=== PATIENT | male | born 1965 | race Caucasian/White ===

== ENCOUNTER 2023-07-27 09:40 | Outpatient (OUT) | payer OTHER, SELFPAY ==
[2023-07-27 10:13] LABS: Basophils Absolute Auto 0.1 10^3/uL (0.0-0.1); Basophils Percent Auto 1.4 % (0.2-2.0); Eosinophils Absolute Auto 0.2 10^3/uL (0.0-0.7); Eosinophils Percent Auto 6.6 % (0.9-7.0); Hematocrit 40.7 % (42.0-54.0); Hemoglobin 13.5 g/dL (14.0-18.0); Lymphocytes Absolute Auto 1.1 10^3/uL (1.2-3.8); Lymphocytes Percent Auto 29.3 % (20.5-60.0); Mean Corpuscular HGB Conc 33.2 g/dL (29.9-35.2); Mean Corpuscular Volume 93.6 fL (80.0-94.0); Mean Platelet Volume 9.6 fL (9.5-13.5); Monocytes Absolute Auto 0.4 10^3/uL (0.3-0.8); Neutrophils Absolute Auto 1.9 10^3/uL (1.4-6.5); Neutrophils Percent Auto 51.7 % (43.0-75.0); Platelet Count 209 10^3/uL (150-450); Red Blood Count 4.35 10^6/uL (4.70-6.10); Red Cell Distribution Width 12.3 % (11.0-15.0); White Blood Count 3.7 10^3/uL (4.0-11.0)
[2023-07-27 11:23] LABS: Alanine Aminotransferase 25 U/L (16-63); Albumin Globulin Ratio 1.2; Albumin Level 3.7 g/dL (3.4-5.0); Alkaline Phosphatase 38 U/L (46-116); Anion Gap 10.2; Aspartate Amino Transferase 13 U/L (15-37); BUN Creatinine Ratio 18.8; Bilirubin Total 0.4 mg/dL (0.2-1.0); Calcium 8.6 mg/dL (8.5-10.1); Carbon Dioxide 30.2 mmol/L (21.0-32.0); Chloride 104 mmol/L (98-107); Chol HDL Ratio 2.9; Cholesterol 146 mg/dL (<=200); Estimated GFR (African America >60 (>=60); Estimated GFR (Non-African Ame >60 (>=60); Glucose 97 mg/dL (74-106); HDL Cholesterol 51 mg/dL (40-60); LDL Cholesterol Calculated 86.2 mg/dL; Potassium 4.4 mmol/L (3.5-5.1); Sodium 140 mmol/L (136-145); Total Protein 6.7 g/dL (6.4-8.2); Triglycerides 44 mg/dL (<=150); VLDL CHOLESTEROL 8.8 mg/dL
[2023-07-27 12:01] LABS: Prostate Specific Antigen Scrn 1.22 ng/mL (<=4.00)
[2023-07-27 12:02] LABS: Free T3 2.67 pg/mL (2.18-3.98); Thyroid Stimulating Hormone 2.503 uIU/mL (0.358-3.740)
[2023-07-27 12:26] LABS: Estimated Average Glucose 103 mg/dL; Glycohemoglobin A1C 5.2 % (4.5-6.2)
[2023-07-28 11:09] LABS: Insulin 6.3 uIU/mL (2.6-24.9)
== END 2023-07-27 09:41 | disposition home or self-care (01) ==
LOC: LAB 09:43
PROVIDERS: PCP Family Medicine; Visit Provider Family Medicine
DX: Z00.00 Encounter for general adult medical examination without abnormal findings (principal); E78.5 Hyperlipidemia, unspecified; R73.09 Other abnormal glucose; Z12.5 Encounter for screening for malignant neoplasm of prostate; Z12.12 Encounter for screening for malignant neoplasm of rectum; D72.819 Decreased white blood cell count, unspecified
CPT/HCPCS: 36415; 80053; 80061; 83036; 83525; 84436; 84443; 84481; 85025; G0103

== ENCOUNTER 2023-08-04 12:51 | Outpatient (OUT) | payer OTHER, SELFPAY ==
--- NOTE | 2023-08-04 13:00 | CT_ITS ---
[address] [address] Patient Name: LEI VASQUEZ MRN: [id number] date: 1965 Sex: M Assigned Patient Location: CT Current Patient Location: Accession/Order Number: [id number] Exam Date: 08/04/2023 13:02 Report Date: 08/05/2023 06:54 At the request of: RAMANDEEP ALMEIDA Procedure: CT lung screening low-dose EXAMINATION: CT lung screening low-dose HISTORY: Well Adult Z00.00 COMPARISON: No relevant comparison available. TECHNIQUE: Axial, Coronal, and Sagittal images were created without the administration of IV contrast material. Dose reduction techniques were achieved by using automated exposure control and/or adjustment of mA and/or kV according to patient size and/or use of iterative reconstruction technique. FINDINGS: LUNGS: No suspicious nodules or acute infiltrates. Incidental cyst 3.0 cm bulla within right middle lobe. PLEURA: No mass, effusion, or pneumothorax. VASCULATURE: No abnormality. JONAS: Calcified lymph nodes compatible with chronic granulomatous disease. MEDIASTINUM: Calcified lymph nodes. CARDIAC: No enlargement, pericardial thickening, or significant calcification. AORTA: No aneurysm or dissection. CHEST WALL: No mass or axillary adenopathy BONES: No bone lesion or fracture. LIMITED ABDOMEN: No suspicious findings. Limited images of the upper abdomen. OTHER: Negative. CT/CT lung screening low-dose IMPRESSION: 1. Lung-RADS Category 1 Negative. No nodules and definitely benign nodules. Continue annual screening with LDCT in 12 months. Electronically authenticated by: LIYAH HENRIQUEZ Date: 08/05/2023 06:54
[2023-08-04 16:06] LABS: Occult Blood Negative
== END 2023-08-04 12:52 | disposition home or self-care (01) ==
LOC: CT 12:51
PROVIDERS: PCP Family Medicine; Visit Provider Family Medicine
DX: Z00.00 Encounter for general adult medical examination without abnormal findings (principal); E78.5 Hyperlipidemia, unspecified; R73.09 Other abnormal glucose; Z12.5 Encounter for screening for malignant neoplasm of prostate; Z12.12 Encounter for screening for malignant neoplasm of rectum
CPT/HCPCS: 71271; G0328

== ENCOUNTER 2023-08-24 15:44 | Outpatient (OUT) | payer OTHER, SELFPAY | END 2023-08-24 15:45 | disposition home or self-care (01) | LOC: PST 15:44 | PROVIDERS: PCP Family Medicine; Visit Provider Surgery | DX: Z01.818 Encounter for other preprocedural examination (principal); D64.9 Anemia, unspecified; Z87.11 Personal history of peptic ulcer disease ==

== ENCOUNTER 2023-09-01 07:32 | Outpatient (RCR) | payer OTHER, SELFPAY | END 2023-09-24 23:59 | disposition home or self-care (01) | LOC: INF 07:32 | PROVIDERS: PCP Family Medicine; Visit Provider Internal Medicine Hematology & Oncology | DX: D72.819 Decreased white blood cell count, unspecified (principal); D64.9 Anemia, unspecified; Z72.0 Tobacco use | CPT/HCPCS: G0463 ==

== ENCOUNTER 2023-09-23 11:55 | Outpatient (OUT) | payer OTHER, SELFPAY ==
[2023-09-23 12:32] LABS: Basophils Absolute Auto 0.1 10^3/uL (0.0-0.1); Basophils Percent Auto 1.7 % (0.2-2.0); Eosinophils Absolute Auto 0.2 10^3/uL (0.0-0.7); Hematocrit 40.6 % (42.0-54.0); Hemoglobin 13.7 g/dL (14.0-18.0); Immature Granulocytes Abs Auto 0.01 10^3/uL (0.00-0.03); Immature Granulocytes Pct Auto 0.2 % (0.0-0.5); Lymphocytes Absolute Auto 1.2 10^3/uL (1.2-3.8); Lymphocytes Percent Auto 30.3 % (20.5-60.0); Mean Corpuscular HGB Conc 33.7 g/dL (29.9-35.2); Mean Corpuscular Hemoglobin 31.6 pg (25.9-34.0); Mean Corpuscular Volume 93.8 fL (80.0-94.0); Mean Platelet Volume 9.8 fL (9.5-13.5); Monocytes Absolute Auto 0.5 10^3/uL (0.3-0.8); Monocytes Percent Auto 13.2 % (1.7-12.0); Neutrophils Percent Auto 48.6 % (43.0-75.0); Platelet Count 232 10^3/uL (150-450); Red Blood Count 4.33 10^6/uL (4.70-6.10); Red Cell Distribution Width 12.3 % (11.0-15.0)
[2023-09-23 13:11] LABS: Percent Iron Saturation 38.7 %
[2023-12-14 14:32] LABS: Reticulocyte Count 1.15 % (0.60-3.10)
== END 2023-09-23 11:56 | disposition home or self-care (01) ==
PROVIDERS: PCP Family Medicine; Visit Provider Internal Medicine Hematology & Oncology
DX: D72.819 Decreased white blood cell count, unspecified (principal); D64.9 Anemia, unspecified
CPT/HCPCS: 36415; 82728; 82784; 83540; 83550; 84155; 84165; 85025; 85045; 86334

== ENCOUNTER 2023-09-29 07:44 | Outpatient (RCR) | payer OTHER, SELFPAY ==
[2023-09-30 15:13] LABS: Immunoglobulin A, Qn, Serum 326 mg/dL (90-386); Immunoglobulin G, Qn, Serum 898 mg/dL (603-1613); Immunoglobulin M, Qn, Serum 65 mg/dL (20-172)
[2023-10-01 16:11] LABS: Albumin 3.9 g/dL (2.9-4.4); Alpha-1-Globulin 0.2 g/dL (0.0-0.4); Alpha-2-Globulin 0.6 g/dL (0.4-1.0); Gamma Globulin 0.9 g/dL (0.4-1.8); Protein, Total 6.5 g/dL (6.0-8.5)
== END 2023-09-29 14:00 | disposition home or self-care (01) ==
LOC: INF 07:44
PROVIDERS: PCP Family Medicine; Visit Provider Internal Medicine Hematology & Oncology
DX: D72.819 Decreased white blood cell count, unspecified (principal); D64.9 Anemia, unspecified
CPT/HCPCS: 36415; 82784; 84155; 84165; 86334; G0463

== ENCOUNTER 2025-04-13 08:02 | Outpatient (OUT) | payer OTHER, SELFPAY ==
--- OUTSIDE RECORDS SUMMARY | 2025-04-07 07:00 | XMS_ITS ---
Author Organization [facility] in [place] Address [address] [place] [address] Care Team Providers Care Grinder Chipper Name Role Phone Chuck Bravo Primary Care Provider Allergies Allergen (clinical drug ingredient) Drug/Non Drug Allergy documented on EMR Reaction Allergy Type Onset Date Status NONE (NONE) (uncoded) Unknown Allergy Active REASON FOR VISIT Presents to office alone for yearly wellness., Would like referral to ENT. Has been having a lot sinus pressure ad congestion then triggers a headache. Last sinus surgery was 10 years ago Social History Tobacco Use: Social History Observation Description Date Details (start date - stop date) Current Smoker NA - NA Tobacco Use/Smoking Question Answer Notes Patient is a current smoker How often do you smoke cigarettes? every day Are you interested in quitting? Not ready to jonn t AUDIT-C (Standard) Question Answer Notes Did you have a drink containing alcohol in the p ast year? No Points 0 Interpretation Negative Vital Signs Blood pressure systolic 122 mm Hg 04/07/20 25 Blood pressure diastolic 70 mm Hg 025 Height 71 in 04/07/2025 Weight 230 lbs 04/07/2025 BMI 32.07 kg/m2 04/07/2025 Encounters Encounter Location Date Provider Diagnosis [facility] [address] [place] [address] 04/07/2025 Chuck Bravo Well adult Z00.0 0 Assessments Encounter Date Diagnosis (ICD Code) Assessment Notes Treatment Notes Treatment Clinical Notes Section Notes 04/07/2025 Well adult (ICD-10 - Z00.00) Plan Of Treatment Pending Test Test Name Order Date HEMOGLOBIN A1C (GLYCO) 04/07/2025 INSULIN, TOTAL 04/07/2025 LIPID PANEL (CHOL/TRIG/HDL/LDL) 04/07/20 25 Cologuard 04/07/2025 THYROID PANEL (T4/TSH/FREE T3) PSA, SCREENING 04/07/2025 CMP (COMP MET HERNANDEZ) w/eGFR CKD-EPI 2024 CBC WITH DIFF 04/07/2025 Progress Notes * Rambo ROSARIO EDOB: [birth year] (59 yo M)Acc No.[id number]:04/07/2025 Progress Note Patient: Rambo SAN Provider: Nely Bravo ([facility])MD :1965 A ge:59 Y S ex:Male Date:04/07/2025 Address:[address] [place] [address], [facility] Check In:10:56 AM ESTCheck O ut:11:50 AM EST Subjective: * Chief Complaints: * P resents to office alone for yearly wellness.Would like referral to ENT. Has been having a lot sinus pressure ad congestion then triggers a headache. Last sinus surgery was 10 years ago * HPI: D epression Screening: PHQ-2 (2015 Edition) L ittle interest or pleasure in doing things??Not at all F eeling down, depressed, or hopeless? N ot at all T otal Score 0 cologuard of colon screning needs ent refurral for recuerren sinusitis. * ROS: E ENT: hearing changes d enies. v isual changes d enies.?non-healing mouth sores d enies. s wollen glands or neck lumps d enies. h oarseness d enies. s ore throat d enies. d ifficulty swallowing d enies. n ose bleeds d enies. n maren congestion d enies. e ar ache d enies. e ar discharge?denies. r inging in ears d enies. l ight sensitivity d enies. e ye pain d enies. b lurring d enies. e ye irritation d enies. d ouble vision d enies.?vision loss d enies. G eneral/Constitutional: Sweats: D enies. F atigue d enies. S leep problems d enies. A norexia d enies. M alaise d enies. W eight loss d enies.?Fatigue or Weakness d enies. F ever or Chills d enies. C ardiovascular: Shortness of Breath w/lying flat d enies. L ightheadedness/dizziness d enies. C hest tightness/ heavy pressure d enies. S welling of legs, ankles, or feet d enies. W aking up with shortness of breath d enies. C hest pain denies. P alpitations d enies. W eight gain d enies. R espiratory: Chronic or frequent cough d enies. C oughing up blood?denies. D ifficulty breathing d enies. P roductive cough d enies. S noring?denies. S hortness of breath that awakens from sleep (PND) d enies. C hest pain d enies. S putum production d enies. W heezing d enies. M usculoskeletal: Joint pain d enies. J oint Fluid d enies. B ack pain d enies. K nee pain d enies. N consuelo pain d enies. J oint Stiffness d enies. M uscle cramps d enies. W eakness of muscles d enies. A rthritis d enies. M uscle aches d enies. P ain in shoulder(s) d enies. S wollen joints d enies. * Active Problem List U07.1 COVID-19 Modified On:07/09/2023U Status:confirmed G47.33 BERTRAND (obstructive sle ep apnea) Modified On:07/09/2023U Status:confirmed K46.9 Hernia Modified On:07/09/2023U Status:confirmed Z00.00 Well adult Modified On:07/17/2023/U Status:confirmed D72.819 Decreased white bloo d cell count, unspecified Modified On:07/28/2023U Status:confirmed J32.0 Chronic sinusitis of both maxillary sinuses Modified On:04/07/2025W/U Status:confirmed * Medical History: * Surgical History: N maren Surgery Hernia Surgery * Hospitalization/Major Diagno stic Procedure: * Family History: F ather: 73 yrs, Lung cancer, Heart Disease, diagnosed with Other malignant neoplasm of unspecified site, Unspecified heart disease. M other: 71 yrs, cancer, diagnosed with Other malignant neoplasm of unspecified site. S ister(s): alive. 1 sister(s) - healthy. .? * Social History: T obacco Use: T obacco Use/Smoking P atient is a c urrent smoker H ow often do you smoke cigarettes? e very day A re you interested in quitting? N ot ready to quit D rug/Alcohol: A LIA-C (Standard) D id you have a drink containing alcohol in the past year? N o P oints 0 I nterpretation N egative * Medications: N one * Allergies: N ONE (NONE): Allergyno[Allergies Verified] Objective: * Vitals: W t:230lbs, Ht: 71 in, BP:122/70mm Hg, BMI:32.07Index, Ht-cm: 180.34 cm, Wt-k.33 kg. * Examination: P hysical Exam: GENERAL: w ell developed, well nourished, in no acute distress. HEAD: n ormocephalic/atraumatic. EYES: p upils equal, round and reactive to light, conjunctivae and sclerae normal. EARS: n o deformity or lesion of external ear, canals and TM appear normal bilaterally, TM's intact, not inflamed with normal light reflex, hearing grossly normal to conversational speech. NOSE: n o deformity, discharge, inflammation, or lesions.? MOUTH: m ucous membranes moist, normal oropharynx and posterior pharynx without lesions or exudates, tongue normal, dentition normal. NECK: n consuelo supple, no masses or palpable cervical nodes, trachea midline, thyroid without nodules, masses, tenderness, or enlargement. CHEST: n o chest wall deformity, no chest wall tenderness.? LUNGS: n ormal respiratory effort and clear to auscultation, no wheezes, rales, or rhonchi, good air exchange. CARDIO: r egular rate and rhythm, normal S1 and S2, nor murmur, rub, or gallop. PULSES: n ormal capillary refill. ABDOMEN: s oft, non-distended, non-tender, no masses. MUSCULOSKELETAL: n o deformity or scoliosis noted, normal range of motion, joints normal, no erythema, edema, effusion, or ecchymosis. EXTREMITY: n o clubbing, cyanosis, edema, or deformity with normal ROM in both upper and lower bilateral extremities. NEUROLOGIC: g rossly normal. SKIN: n o rashes, ulcerations, or suspicious lesions. LYMPH NODES: n o cervical adenopathy, nodes normal. MENTAL STATUS: a lert and oriented x3, normal mood and affect. Assessment: * Assessment: 1. W ell adult - Z00.00 (Primary) Plan: * Treatment: * Procedure Codes: * Preventive Medicine: Screenings/Counseling: B TN ACTION PLAN Above Normal BMI Follow-up D ietary management education, guidance, and counseling See treatment section of progress note for complete details of management plan. T OBACCO ACTION PLAN Patient counselled on the dangers of tobacco use and urged to quit. 0 04/07/2025 . * * Sign off status: Completed Visit Status: C HK (Check Out) true * Provider: Nely Bravo ([facility])MD Date: 0 04/07/2025 Generated for Printi ng/Facandyg/eTransmitting on: 0 04/13/2025 08:07 AM EDT History and Physical Notes * HPI (History of Present Illness) Category Sub-Category Detail Notes Category Not es Depression Screening PHQ-2 (2015 Edition) Little interest or pleasure in doing things?: Not at all cologuard of colon screning needs ent refurral for recuerren sinusitis Feeling down, depressed, or hopeless?: N ot at all Total Score: 0 Examination Category Sub-Category Detail Notes Category Not es Physical Exam GENERAL: well developed, well nourished, in no acute distress HEAD: normocephalic/atraum atic EYES: pupils equal, round and reactive to light, conjunctivae and sclerae normal EARS: no deformity or lesi on of external ear, canals and TM appear normal bilaterally, TM's intact, not inflamed with normal light reflex, hearing grossly normal to conversational speech NOSE: no deformity, discha rge, inflammation, or lesions MOUTH: mucous membranes gurwinder st, normal oropharynx and posterior pharynx without lesions or exudates, tongue normal, dentition normal NECK: neck supple, no mass es or palpable cervical nodes, trachea midline, thyroid without nodules, masses, tenderness, or enlargement CHEST: no chest wall deform ity, no chest wall tenderness LUNGS: normal respiratory e ffort and clear to auscultation, no wheezes, rales, or rhonchi, good air exchange CARDIO: regular rate and rhy thm, normal S1 and S2, nor murmur, rub, or gallop PULSES: normal capillary ref ill ABDOMEN: soft, non-distended, non-tender, no masses RECTAL: MUSCULOSKELETAL: no deformity or scol iosis noted, normal range of motion, joints normal, no erythema, edema, effusion, or ecchymosis EXTREMITY: no clubbing, cyanosi s, edema, or deformity with normal ROM in both upper and lower bilateral extremities NEUROLOGIC: grossly normal SKIN: no rashes, ulceratio ns, or suspicious lesions LYMPH NODES: no cervical adenopat hy, nodes normal MENTAL STATUS: alert and oriented x 3, normal mood and affect
--- OUTSIDE RECORDS SUMMARY | 2025-04-07 07:38 | XMS_ITS ---
Author Organization [facility] in [place] Address [address] [place] [address] Care Team Providers Care Pick And Shovel Worker Name Role Phone Chuck Bravo Primary Care Provider [phone] Problems Problem Type SNOMED Code ICD Code Onset Dates Problem Status W/U Status Risk Notes Problem Chronic maxillary sinusitis (12461693) Chronic sinusitis of both maxillary sinuses (J32.0) Active confirmed Encounters Encounter Location Date Provider Diagnosis [facility] [address] [place] [address] 04/07/2025 Chuck Bravo Chronic sinusitis of both maxillary sinuses J32.0 Assessments Encounter Date Diagnosis (ICD Code) Assessment Notes Treatment Notes Treatment Clinical Notes Section Notes 04/07/2025 Chronic sinusitis of both maxillary sinuses (ICD-10 - J32.0) Plan Of Treatment Pending Test Test Name Order Date CT MAXILLOFACIAL WO CONTRAST 04/07/2025 Progress Notes * Rambo ROSARIO EDOB: [birth year] (59 yo M)Acc No.[id number]:04/07/2025 Patient: Thomas Rambo ESPINOZA :1965 A ge:59 Y S ex:Male Address:[place] [address] Subjective: * Chief Complaints: * C t * Medical History: * Surgical History: * Hospitalization/Major Diagno stic Procedure: * Medications: Objective: * Vitals: * Physical Examination: Assessment: * Assessment: 1. C hronic sinusitis of both maxillary sinuses - J32.0 (Primary) Plan: * Treatment: * Procedure Codes: * true * Date: Generated for Blanca mendosa/Angelic/Evaristo on: 0 04/13/2025 08:08 AM EDT
--- OUTSIDE RECORDS SUMMARY | 2025-04-11 14:40 | XMS_ITS | Encounter Summary ---
Author Organization [facility] tem Address [id number] [address] [place] [address] Care Team Providers Care Pig Breeder Name Role Phone Ramesh Bravo MD Primary Care Provider [phone] Reason for Visit * Reason Comments Fall Rib Pain Encounter Details Date Type Department Care Team (Late st Contact Info) Description 04/11/2025 2:40 PM EDT - 04/11/2025 4:14 PM EDT Emergency [facility] - ER [address] [place] [id number] Vishnu Carolina D, DO [address] [place] [address] Rib contusion, right, initial encounter (Primary Dx) Discharge Disposition: Home Social History Tobacco Use Types Packs/Day Years Used Date Smoking Tobacco: Never Smokeless Tobacco: Never Alcohol Use Standard Drinks/Week Comments Yes 0 (1 standard drink = 0.6 oz pur e alcohol) Childcare Answer Date Recorded Childcare Unknown 04/06/2019 Employment Answer Date Recorded Employment Unknown 04/06/2019 Hunger Screening Answer Date Recorded Within the past 12 months we worried whether our food would run out before we got money to buy more. Never True 01/01/2024 Within the past 12 months th e food we bought just didn't last and we didn't have money to get more. Never True 01/01/2024 Purpose - Life Answer Date Recorded Purpose and direction in life Unknown Sex and Gender Information Value Date Recorded Sex Assigned at Male 10/02/2020 11:41 AM EST Legal Sex Male 12:10 PM EDT Gender Identity Male 10/02/2020 11:41 AM EST Sexual Orientation Straight 10/02/2020 11 :41 AM EST documented as of this encounter Last Filed Vital Signs Vital Sign Reading Time Taken Comments Blood Pressure 118/83 04/11/2025 2:45 PM EDT Pulse 83 04/11/2025 2:45 PM EDT Temperature 36.4 C (97.5 F) 04/11/2025 2:45 PM EDT Respiratory Rate 16 04/11/2025 2:45 PM EDT Oxygen Saturation 97% 04/11/2025 2:45 PM EDT Inhaled Oxygen Concentration - - Weight 102.1 kg (225 lb) 04/11/2025 2:45 PM EDT Height 180.3 cm (5' 11 ) 04/11/2025 2:45 PM EDT Body Mass Index 31.38 04/11/2025 2:45 PM EDT documented in this encounter Discharge Instructions * Discharge Instructions* Vishnu Carolina DO - 04/11/2025 3:24 PM EDT Naproxen for pain Flexeril for muscle relaxation Ice or heat to the sore area Please see your family doctor for recheck Return for any concerns documented in this encounter Medications at Time of Discharge cyclobenzaprine (FLEXERIL) 10 mg tablet Take 1 tablet (10 mg total) by mouth 2 (two) times a day as needed for muscle spasms for up to 14 doses. 10 tablet 04/11/2025 naproxen (NAPROSYN) 500 mg tablet Take 1 tablet (500 mg total) by mouth in the morning and 1 tablet (500 mg total) in the evening. Take with meals. Do all this for 20 doses. 20 tablet 04/11/2025 04/21/2025 documented as of this encounter ED Notes * Vishnu Carolina DO - 04/11/2025 3:14 PM EDT Images from the original note were not included. [facility] - ER Pt Name: Rambo Boldencarolina SUMMERS Birthdate: 1965 Chief Complaint: Chief Complaint Patient presents with ??? Fall ??? Rib Pain History of Present Illness: Initial evaluation performed at 3:[address] Carolina. Patient is a 59 y.o. Male who presents to the ED for evaluation of Fall rib pain. Patient presents to ED for a fall. Patient states while working he was coming down steps when he fell. Patient states when he fell he fell on right side. Patient states he hit his ribs on the steps. History provided by: Patient aerodynamic consultant used: No Past Medical History: Past Medical History: Diagnosis Date ??? Anemia Sep 2020 ??? Back pain 2004 ??? Shingles 2009 ??? Varicella Childhood Past Surgical History: Past Surgical History: Procedure Laterality Date ??? HERNIA REPAIR March 2021 Lapo/Robotic ??? INGUINAL HERNIA REPAIR Sep 2019 ??? SINUS SURGERY Family History: Family History Problem Relation Age of Onset ??? Depression Mother ??? Mental illness Mother ??? COPD Father ??? Heart disease Father ??? Lung cancer Father Social History: Social History Socioeconomic History ??? Marital status: Tobacco Use ??? Smoking status: Never ??? Smokeless tobacco: Never Vaping Use ??? Vaping status: Every Day ??? Substances: Nicotine ??? Devices: Refillable tank Substance and Sexual Activity ??? Alcohol use: Yes ??? Drug use: Not Currently ??? Sexual activity: Defer Social Drivers of Health Food Insecurity: No Food Insecurity (01/01/2024) Hunger Screening ??? Food Insecurity - Worry: Never True ??? Food Insecurity - Inability: Never True Review of Systems: Review of Systems Physical Exam: ED Triage Vitals [04/11/25 1445] Temp Heart Rate Resp BP SpO2 36.4 ??C (97.5 ??F) 83 16 118/83 97 % Temp Source Heart Rate Source Patient Position BP Location FiO2 (%) Temporal Pulse Ox Sitting Left arm -- Vitals: 04/11/25 1445 BP: 118/83 Temp: 36.4 ??C (97.5 ??F) TempSrc: Temporal Pulse: 83 Resp: 16 SpO2: 97% Height: 180.3 cm (5' 11 ) Weight: 102.1 kg (225 lb) Physical Exam Vitals reviewed. HENT: Head: Normocephalic and atraumatic. Eyes: Conjunctiva/sclera: Conjunctivae normal. Cardiovascular: Rate and Rhythm: Normal rate. Pulmonary: Effort: Pulmonary effort is normal. Breath sounds: Normal breath sounds. Abdominal: General: There is no distension. Palpations: Abdomen is soft. Musculoskeletal: General: Normal range of motion. Cervical back: Normal range of motion and neck supple. Comments: Posterior right tenderness to ribs. Skin: General: Skin is warm and dry. Neurological: General: No focal deficit present. Mental Status: He is alert and oriented to person, place, and time. GCS: GCS eye subscore is 4. GCS verbal subscore is 5. GCS motor subscore is 6. Procedure: Procedures Re-evaluation: Mandy Gallagher (scribe), documented on behalf and in the presence of Dr. Andre Carolina. 3:19 PM Patient prescribed medication. Patient will be discharges, patient will be given safe instructions upon discharge. Medical Decision Making Amount and/or Complexity of Data Reviewed Radiology: ordered. Details: Imaging was independently??viewed??and is notable for no findings. Agreeable with officialradiologist read.?? ED Course: Clinical Impressions as of 04/11/25 1519 Rib contusion, right, initial encounter . ED Disposition None . Please note that portions of this note were completed with a voice recognition program. Efforts were made to edit the dictations but occasionally words are mis-transcribed. 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 and slid on steps falling backwards and striking posterior right lower ribs on step Pain to area since Mildredness to area noted No crepitus or swelling is noted Denies hitting head Denies pain to other areas Pt A/Ox4, calm, pleasant Skin wm, dry, approp color Resp even, easy Breathsounds clear throughoutbilat post/lat Amb into ED steady Drove self here documented in this encounter Plan of Treatment Not on file documented as of this encounter Procedures Procedure Name Priority Date/Time Associated Diagnosis Comments XR RIBS RT 3 VWS W PA CHEST STAT 04/11/2025 3:01 PM EDT documented in this encounter Results * X-ray ribs right 3 views with pa chest (04/11/2025 3:01 PM EDT) Anatomical Region Laterality Modality MSK, Chest Right Computed Radiogr aphy 04/11/2025 3:02 PM EDT Narrative 04/11/2025 3:03 PM EDT Clinical history: Fall. Rib pain. Right RIBS: 04/11/2025 COMPARISON: None FINDINGS: 5 views of the right ribs were obtained. No displaced rib injury or focal rib deformity is evident. No pneumothorax or pleural effusion is present. Other visualized osseous structures are within normal limits. IMPRESSION: No displaced rib fracture. Finalized by Heriberto Foley MD on 04/11/2025 3:03 PM Procedure Note Heriberto Foley MD - 04/11/2025 Clinical history: Fall. Rib pain. Right RIBS: 04/11/2025 COMPARISON: None FINDINGS: 5 views of the right ribs were obtained. No displaced rib injury or focalrib deformity is evident. No pneumothorax or pleural effusion is present.Other visualized osseous structures are within normal limits. IMPRESSION: No displaced rib fracture. Finalized by Heriberto Foley MD on 04/11/2025 3:03 PM Vishnu Carolina DO IMG DIAGNOSTIC IMAGING ORDERA BLES Final Result documented in this encounter Visit Diagnoses Diagnosis Rib contusion, right, initial encounter- Primary documented in this encounter Care Teams Pig Breeder Relationship Specialty Start Date End Date Ramesh Bravo MD PCP - General Family Medicine 09/28/20 documented as of this encounter
--- OUTSIDE RECORDS SUMMARY | 2025-04-12 17:10 | XMS_ITS ---
Author Organization [facility] in [place] Address [address] [place] [address] Care Team Providers Care Principal Programmer Name Role Phone Chuck Bravo Primary Care Provider [phone] Encounters Encounter Location Date Provider Diagnosis [facility] [address] [place] [address] 04/12/2025 Chuck Bravo Plan Of Treatment No Information Progress Notes * Rambo ROSARIO EDOB: [birth year] (59 yo M)Acc No.[id number]:04/12/2025 UNLOCKED PROGRESS NOTE Patient: Thomas Rambo ESPINOZA :1965 A ge:59 Y S ex:Male Address:[address] [place] [address] * * Date:
--- OUTSIDE RECORDS SUMMARY | 2025-04-13 08:06 | XMS_ITS | Clinical Summary ---
Author Organization [facility] Address [address] [place] [address] Care Team Providers Care Commissioning Engineer Name Role Phone Ramesh Bravo MD Primary Care Provider [phone] Allergies No known active allergies Medications No known medications Active Problems Problem Noted Date Diagnosed Date Chronic nonintractable headache 05/05/2016 Resolved Problems Problem Noted Date Diagnosed Date Resolved Date Decreased white blood cell count, unspecified 08/28/20 23 08/28/2023 Closed displaced fracture of lateral malleolus of right fibula 05/22/2021 07/09/2023 Posterior tibial tendinitis of right lower extremity 05/22/2021 07/09/2023 Status post inguinal hernia repair 04/15/2021 07/09/2023 Gastroesophageal reflux dise ase without esophagitis 05/05/2016 07/09/2023 Immunizations Immunization Administration Dates Next Due Tdap 10/26/2012 Family History Medical History Relation Name Comments Cancer Father Rambo Roberson Sr Early natural Mother Anaya Roberson Relation Name Status Comments Father Rambo Roberson Sr Mother Anaya Roberson Social History Tobacco Use Types Packs/Day Years Used Date Smoking Tobacco: Former Cigarettes 0.5 10 0 10/26/2006 - 10/26/2014 Smokeless Tobacco: Current Tobacco Cessation:Ready to Q uit: Not Asked Alcohol Use Standard Drinks/Week Comments Yes 2 (1 standard drink = 0.6 oz pur e alcohol) Sex and Gender Information Value Date Recorded Sex Assigned at Not on file Legal Sex Male 6:54 PM EDT Gender Identity Not on file Sexual Orientation Not on file Last Filed Vital Signs Vital Sign Reading Time Taken Comments Blood Pressure - - Pulse - - Temperature - - Respiratory Rate - - Oxygen Saturation - - Inhaled Oxygen Concentration - - Weight 104 kg (230 lb) 11/16/2023 2:01 PM EST Height 180.3 cm (5' 11 ) 11/16/2023 2:01 PM EST Body Mass Index 32.08 11/16/2023 2:01 PM EST Plan of Treatment Not on file Insurance Care Teams Commissioning Engineer Relationship Specialty Start Date End Date Ramesh Bravo MD PCP - General Family Medicine 07/07/23
--- OUTSIDE RECORDS SUMMARY | 2025-04-13 08:07 | XMS_ITS | Encounter Summary ---
Author Organization [facility] Address [address] [place] [address] Care Team Providers Care Rand Maker Name Role Phone Ramesh Bravo MD Primary Care Provider [phone] Encounter Details Date Type Department Care Team (Late st Contact Info) Description 07/09/2023 Abstract [facility] [address] [place] [address] Malik Duque DO [address] [place] [address] Social History Tobacco Use Types Packs/Day Years Used Date Smoking Tobacco: Former Cigarettes Q uit: 2015 Smokeless Tobacco: Never Alcohol Use Standard Drinks/Week Comments Not Currently 0 (1 standard drink = 0.6 oz pur e alcohol) Sex and Gender Information Value Date Recorded Sex Assigned at Not on file Legal Sex Male 6:54 PM EDT Gender Identity Not on file Sexual Orientation Not on file documented as of this encounter Plan of Treatment Not on file documented as of this encounter Visit Diagnoses Not on filedocumented in this encounter Care Teams Rand Maker Relationship Specialty Start Date End Date Ramesh Bravo MD PCP - General Family Medicine 07/07/23 documented as of this encounter
--- OUTSIDE RECORDS SUMMARY | 2025-04-13 08:07 | XMS_ITS | Encounter Summary ---
Author Organization [facility] Address [address] [facility] [place] [address] Care Team Providers Care Referral Rn Name Role Phone Ramesh Bravo MD Primary Care Provider [phone] Encounter Details Date Type Department Care Team (Late st Contact Info) Description 07/15/2023 Orders Only [facility] [address] [place] [address] Noa Cifuentes MA Social History Tobacco Use Types Packs/Day Years [...] on filedocumented in this encounter Care Teams Referral Rn Relationship Specialty Start Date End Date Ramesh Bravo MD PCP - General Family Medicine 07/07/23 documented as of this encounter
--- OUTSIDE RECORDS SUMMARY | 2025-04-13 08:07 | XMS_ITS | Encounter Summary ---
Author Organization [employer] [facility] tem Address [id number] [address] [place] [address] Care Team Providers Care Education Program Associate Name Role Phone Ramesh Barvo MD Primary Care Provider [phone] Encounter Details Date Type Department Care Team (Late st Contact Info) Description 10/01/2020 Telephone [facility] [address] [facility] [address] Peterson Quintero MD [address] [place] [address], [address] [place] [address] Social History Tobacco Use Types Packs/Day Years Used Date Smoking Tobacco: Never Smokeless Tobacco: Never Alcohol Use Standard Drinks/Week Comments Yes 0 (1 standard drink = 0.6 oz pur e alcohol) Childcare Answer Date Recorded Childcare Unknown 04/06/2019 Employment Answer Date Recorded Employment Unknown 04/06/2019 Sex and Gender Information Value Date Recorded Sex Assigned at Male 10/02/2020 11:41 AM EST Legal Sex Male 12:10 PM EDT Gender Identity Male 10/02/2020 11:41 AM EST Sexual Orientation Straight 10/02/2020 11 :41 AM EST COVID-19 Exposure Response Date Recorded In the last month, have you been in contact with someone who was confirmed or suspected to have Coronavirus / COVID-19? No / Unsure 10/04/2020 9:12 AM EST documented as of this encounter Miscellaneous Notes * Telephone Encounter - Hemalatha Dora - 10/01/2020 11:59 AM EST Hey there! Can you take a look at the ankle XR, let me know if this is something that you would like to see and if it needs to be seen soon in the office? Fanny Cazares * Telephone Encounter - Peterson Quintero MD - 10/01/2020 11:[address] melton can see * Telephone Encounter - Hemalatha John - 10/01/2020 11:59 AM EST Charo Brown! Would you mind calling this patient and getting them on with Dr Melton for later this week? It is Worker's Comp, I will update the insurance with the [facility] info. Sage, Fanny * Telephone Encounter - Stephanie Angela - 10/01/2020 11:59 AM EST I left a message on the patients voicemail to schedule with Dr Melton. documented in this encounter Plan of Treatment Not on file documented as of this encounter Visit Diagnoses Not on filedocumented in this encounter Additional Health Concerns Infection Onset Date Last Indicated Resolved Time COVID-19 Rule-Out 10/25/2021 10/25/2021 10/26/2021 12:30 PM EST COVID-19 Positive 10/25/2021 10/25/2021 11/15/2021 11:13 PM EST documented as of this encounter Care Teams Education Program Associate Relationship Specialty Start Date End Date Ramesh Bravo MD PCP - General Family Medicine 09/28/20 documented as of this encounter
--- OUTSIDE RECORDS SUMMARY | 2025-04-13 08:07 | XMS_ITS | Encounter Summary ---
Author Organization [employer] [facility] tem Address [id number] [address] [place] [address] Care Team Providers Care Recruiting Consultant Name Role Phone Ramesh Bravo MD Primary Care Provider [phone] Encounter Details Date Type Department Care Team (Late st Contact Info) Description 01/31/2021 Telephone [facility] [address] [place] [phone] Malik Nicholson MD [address] [place] [address] Social History Tobacco Use Types Packs/Day Years Used Date Smoking Tobacco: Never Smokeless Tobacco: Never Alcohol Use Standard Drinks/Week Comments Yes 0 (1 standard drink = 0.6 oz pur e alcohol) Childcare Answer Date Recorded Childcare Unknown 04/06/2019 Employment Answer Date Recorded Employment Unknown 04/06/2019 Purpose - Life Answer Date Recorded Purpose and direction in life Unknown Sex and Gender Information Value Date Recorded Sex Assigned at Male 10/02/2020 11:41 AM EST Legal Sex Male 12:10 PM EDT Gender Identity Male 10/02/2020 11:41 AM EST Sexual Orientation Straight 10/02/2020 11 :41 AM EST documented as of this encounter Miscellaneous Notes * Telephone Encounter - Flavia Jonas - 01/31/2021 9:12 AM EDT I spoke with the patient they need a letter from Dr. Jose Alejandro Sweeney. The letter need to state some information about his [facility] claim and diagnosis. He needs this because he is selling and buying a house. Please contact the patient about the details at [phone]. 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 ?? He was wondering if it would be possible to get a new letter you? ?? It would need to state that his recovery follow up will be re-evaluated at my next appointment and how long it may take for this to heal and what you feel his anticipated release to resume the physical work of his job with the [employer]. His next office visit is on March 07 ?? documented in this encounter Plan of Treatment Not on file documented as of this encounter Visit Diagnoses Not on filedocumented in this encounter Additional Health Concerns Infection Onset Date Last Indicated Resolved Time COVID-19 Rule-Out 10/25/2021 10/25/2021 10/26/2021 12:30 PM EST COVID-19 Positive 10/25/2021 10/25/2021 11/15/2021 11:13 PM EST documented as of this encounter Care Teams Recruiting Consultant Relationship Specialty Start Date End Date Ramesh Bravo MD PCP - General Family Medicine 09/28/20 documented as of this encounter
--- OUTSIDE RECORDS SUMMARY | 2025-04-13 08:07 | XMS_ITS | Clinical Summary ---
Author Organization [facility] Address [address] [place] [address] Care Team Providers Care Life Agent Name Role Phone Ramesh Bravo MD Primary Care Provider [phone] Allergies No known active allergies Medications pantoprazole (PROTONIX) 40 MG tabletIndication s:Gastroesophage al reflux disease without esophagitis Take 1 tablet by mouth 2 times daily 60 tablet 0 6 Active Additional Information Patient not taking.Reported on 03/26/2021 ibuprofen-famoti dine 800-26.6 MG TABS Take 1 tablet by mouth daily as needed 30 tablet 3 6 Active Additional Information Patient not taking.Reported on 03/26/2021 cyclobenzaprine (FLEXERIL) 10 MG tablet Take 1 tablet by mouth 3 times daily as needed for Muscle spasms 30 tablet 2 6 Active cyclobenzaprine (FLEXERIL) 5 MG tablet Take 5 mg by mouth 3 times daily as needed for Muscle spasms Active acetaminophen (TYLENOL) 500 MG tablet Take 1,000 mg by mouth every 6 hours as needed for Pain Active docusate sodium (COLACE) 100 MG capsule Take 1 capsule by mouth 2 times daily 30 capsule Active Additional Information Patient not taking.Reported on 04/15/2021 Active Problems Problem Noted Date Diagnosed Date Status post inguinal hernia repair 04/15/2021 Gastroesophageal reflux disease without esophagi tis 05/05/2016 Chronic nonintractable headache 05/05/2016 Immunizations Immunization Administration Dates Next Due UMBERTOaP, ADACEL (age 10y-64y), BOOSTRIX (age 10y+), IM, 0.5mL 10/26/2012 Family History Medical History Relation Name Comments High Blood Pressure Father Bipolar Disorder Mother Relation Name Status Comments Father Alive Mother Alive Social History Tobacco Use Types Packs/Day Years Used Date Smoking Tobacco: Former Cigarettes Q uit: 03/27/2016 Smokeless Tobacco: Never Alcohol Use Standard Drinks/Week Comments Yes 0 (1 standard drink = 0.6 oz pur e alcohol) not often Sex and Gender Information Value Date Recorded Sex Assigned at Male 04/03/2021 8:20 AM EDT Legal Sex Male 5:38 PM EST Gender Identity Male 04/03/2021 8:20 AM EDT Sexual Orientation Straight 04/03/2021 8: 20 AM EDT Last Filed Vital Signs Vital Sign Reading Time Taken Comments Blood Pressure 110/79 04/15/2021 11:06 AM EDT Pulse 66 04/15/2021 11:06 AM EDT Temperature 36.4 C (97.6 F) 04/05/2021 5:25 PM EDT Respiratory Rate 20 04/05/2021 6:00 PM EDT Oxygen Saturation 95% 04/15/2021 11: 06 AM EDT Inhaled Oxygen Concentration - - Weight 114.9 kg (253 lb 6.4 oz) 021 11:06 AM EDT Height 180.3 cm (5' 11 ) 04/15/2021 11: 06 AM EDT Body Mass Index 35.34 04/15/2021 11:06 AM EDT Plan of Treatment Not on file Medical Devices Implanted Type Area Clinical Laboratory Science Professor Device Identifier Shelf Expiration Date Model / Serial / Lot Mesh Surg [id number] Poly Self Fixating Rect W/ Resrb Serenity Implanted:Qty: 1 on 04/05/2021 by Scooby Nunes DO at [facility] [employer] US SURGICAL-WD 06/25/2025 [id number] / / [id number] Insurance [employer] Care Teams Life Agent Relationship Specialty Start Date End Date Ramesh Bravo MD [address] [place] [address] PCP - General Family Medicine 03/28/21
--- OUTSIDE RECORDS SUMMARY | 2025-04-13 08:08 | XMS_ITS | Encounter Summary ---
Author Organization [facility] Address [address] [place] [address] Care Team Providers Care Monotype Keyboard Operator Name Role Phone Ramesh Bravo MD Primary Care Provider [phone] Encounter Details Date Type Department Care Team (Late st Contact Info) Description 11/16/2023 Abstract [facility] [address] [place] [phone] Ken Quinones, DPM [address] [place], [place] [phone] Social History Tobacco Use Types Packs/Day Years Used Date Smoking Tobacco: Former Cigarettes 0.5 10 0 10/26/2006 - 10/26/2014 Smokeless Tobacco: Current Alcohol Use Standard Drinks/Week Comments Yes 2 [...] on filedocumented in this encounter Care Teams Monotype Keyboard Operator Relationship Specialty Start Date End Date Ramesh Bravo MD PCP - General Family Medicine 07/07/23 documented as of this encounter
--- OUTSIDE RECORDS SUMMARY | 2025-04-13 08:08 | XMS_ITS | Patient Health Record ---
Author Organization [facility] [place] Address [address] [place] [address] Care Team Providers Care Embedded Linux Engineer Name Role Phone Chuck Bravo Primary Care Provider Allergies Allergen (clinical drug ingredient) Drug/Non Drug Allergy documented on EMR Reaction Allergy Type Onset Date Status NONE (NONE) (uncoded) Unknown Allergy Active Reason For Referral No Information Social History Tobacco Use: Social History Observation Description Date Details (start date - stop date) Current Smoker NA - NA Tobacco Use/Smoking Question Answer Notes Patient is a current smoker How often do you smoke cigarettes? every day Are you interested in quitting? Not ready to jonn t Alcohol Screen (Audit-C) Question Answer Notes Did you have a drink contain ing alcohol in the past year? Yes How often did you have 6 or more drinks on one occasion in the past year? Never (0 point) How many drinks did you have on a typical day when you were drinking in the past year? 1 or 2 drinks (0 point) How often did you have a dri nk containing alcohol in the past year? Less than monthly (1 point) Points 1 Interpretation Negative AUDIT-C (Standard) Question Answer Notes Did you have a drink containing alcohol in the p ast year? No Points 0 Interpretation Negative Problems Problem Type SNOMED Code ICD Code Onset Dates Problem Status W/U Status Risk Notes Problem 41056258 Decreased white blood cell count, unspecified (D72.819) Active confirmed Problem Obstructive sleep apnea syndrome (07199594) BERTRAND (obstructive sleep apnea) (G47.33) Active confirmed Problem Well adult (227421880) Well adult (Z00.00) Active confirmed Problem Chronic maxillary sinusitis (58866865) Chronic sinusitis of both maxillary sinuses (J32.0) Active confirmed Problem Hernia (809089823) Hernia (K46.9) Active confirmed Problem COVID-19 (947549771) COVID-19 (U07.1) Active confirmed Vital Signs Blood pressure diastolic 70 mm Hg 04/07/2025 Height 71 in 04/07/2025 Blood pressure systolic 122 mm Hg 04/07/2025 Weight 230 lbs 04/07/2025 BMI 32.07 kg/m2 04/07/2025 Encounters Encounter Location Date Provider Diagnosis [address] [address] 04/07/2025 Chuck Yapy Chronic sinusitis of both maxillary sinuses J32.[address] [address] 04/12/2025 Chuck Yapy [address] [address] 04/07/2025 Chuck Yapy Well adult Z00.00 Assessments Encounter Date Diagnosis (ICD Code) Assessment Notes Treatment Notes Treatment Clinical Notes Section Notes 04/07/2025 Well adult (ICD-10 - Z00.00) 04/07/2025 Chronic sinusitis of both maxillary sinuses (ICD-10 - J32.0) Plan Of Treatment Pending Test Test Name Order Date CMP (COMPLETE METABOLIC PANEL) 3 HEMOGLOBIN A1C (GLYCO) 07/17/2023 HEMOGLOBIN A1C (GLYCO) 04/07/2025 INSULIN, TOTAL 04/07/2025 INSULIN, TOTAL 07/17/2023 LIPID PANEL (CHOL/TRIG/HDL/LDL) 07/17/20 23 LIPID PANEL (CHOL/TRIG/HDL/LDL) 04/07/20 25 CBC WITH DIFF 07/17/2023 PSA, PROSTATE-SPECIFIC ANTIGEN 3 Cologuard 04/07/2025 CT Chest Low Dose for Screening* 023 STOOL OCCULT BLOOD 07/17/2023 CBC AUTO DIFF 07/27/2023 THYROID PANEL (T4/TSH/FREE T3) 5 THYROID PANEL (T4/TSH/FREE T3) 3 PSA, SCREENING 04/07/2025 CT MAXILLOFACIAL WO CONTRAST 04/07/2025 CMP (COMP MET HERNANDEZ) w/eGFR CKD-EPI 2024 CBC WITH DIFF 04/07/2025 Insurance Providers Payer Name Payer Address Payer Phone Subscriber Number Group Number Insured Name Patient Relationship to Insured Coverage Start Date Coverage End Date CAITLYN WILSON [id number] [place] [phone] [id number] Rambo Rosario Self - patient is the insured Medical (General) History Medical History History ICD Code COVID 19 BERTRAND HERNIA LATERAL MALLEOLUS FRACTURE RIGHT Surgical History Surgery Date(Month/Year) Hernia Surgery Nasal Surgery
--- OUTSIDE RECORDS SUMMARY | 2025-04-13 08:08 | XMS_ITS | Encounter Summary ---
Author Organization [facility] tem Address [id number] [address] [place] [address] Care Team Providers Care Early Childhood Education Worker Name Role Phone Ramesh Bravo MD Primary Care Provider [phone] Encounter Details Date Type Department Care Team (Latest Contact Info) Description 04/11/2025 Travel Social History Tobacco Use Types Packs/Day Years [...] AM EST documented as of this encounter Plan of Treatment Not on file documented as of this encounter Visit Diagnoses Not on filedocumented in this encounter Care Teams Early Childhood Education Worker Relationship Specialty Start Date End Date Ramesh Bravo MD PCP - General Family Medicine 09/28/20 documented as of this encounter
--- OUTSIDE RECORDS SUMMARY | 2025-04-13 08:08 | XMS_ITS | Patient Health Record ---
Author Organization [facility] Address [address] [place] [address] Care Team Providers Care Electric Shaver Mechanic Name Role Phone Dr. Juan Jose Horner Primary Care Provider [phone] Reason For Referral No Information Encounters Encounter Location Date Provider Diagnosis [facility] [address] [place] [address] 03/06/2025 Juan Jose Horner Dental caries on pit and fissure surface penetrating into dentin K02.52 ; Other dental procedure status Z98.818 ; Encounter for dental examination and cleaning with abnormal findings Z01.21 and Disturbances in tooth eruption K00.6 Assessments Encounter Date Diagnosis (ICD Code) Assessment Notes Treatment Notes Treatment Clinical Notes Section Notes 03/06/2025 Dental caries on pit and fissure surface penetrating into dentin (ICD-10 - K02.52) 03/06/2025 Other dental procedure status (ICD-10 - Z98.818) 03/06/2025 Encounter for dental examination and cleaning with abnormal findings (ICD-10 - Z01.21) 03/06/2025 Disturbances in tooth eruption (ICD-10 - K00.6) Plan Of Treatment Next Appt Details Provider Name:Kerialverto Guevara, 06/22/2025 01:30:00 PM, [address] [place], [address], Provider Name:Paulina Eden , 09/14/2025 03:45:00 PM, [address] [place], [address], Insurance Providers Payer Name Payer Address Payer Phone Subscriber Number Group Number Insured Name Patient Relationship to Insured Coverage Start Date Coverage End Date DENTAL BCBS FEP [address] [place] [phone] [id number] LEI CHANG JR Self - patient is the insured 5
--- OUTSIDE RECORDS SUMMARY | 2025-04-13 08:08 | XMS_ITS | Clinical Summary ---
Author Organization [employer] [facility] Address [id number] [address] [place] [address] Care Team Providers Care Flower Buncher Or Picker Name Role Phone Ramesh Bravo MD Primary Care Provider [phone] Allergies No known active allergies Medications cyclobenzaprin e (FLEXERIL) 10 mg tablet Take 1 tablet (10 mg total) by mouth 2 (two) times a day as needed for muscle spasms for up to 14 doses. 10 tablet 5 Active naproxen (NAPROSYN) 500 mg tablet Take 1 tablet (500 mg total) by mouth in the morning and 1 tablet (500 mg total) in the evening. Take with meals. Do all this for 20 doses. 20 tablet 5 04/21/20 25 Active cyclobenzaprin e (FLEXERIL) 10 mg tablet Take 10 mg by mouth 3 (three) times a day. 1 04/11/20 25 Discontinued Active Problems Problem Noted Date Diagnosed Date Closed displaced fracture of lateral malleolus of right fibula 05/22/2021 Posterior tibial tendinitis of right lower extre mity 05/22/2021 Encounters Date Type Department Care Team Description 04/11/2025 2:40 PM EDT - 04/11/2025 4:14 PM EDT Emergency [facility] - ER [address] [place] [phone] Vishnu [place], Rib contusion, right, initial encounter (Primary Dx) Discharge Disposition: Home 04/11/2025 Travel from Last 3 Months Family History Medical History Relation Name Comments COPD Father Norm Heart disease Father Norm Lung cancer Father Norm Depression Mother Anaya Mental illness Mother Anaya Relation Name Status Comments Father Norm Mother Anaya Social History Tobacco Use Types Packs/Day Years [...] Orientation Straight 10/02/2020 11 :41 AM EST Last Filed Vital Signs Vital Sign Reading [...] Mass Index 31.38 04/11/2025 2:45 PM EDT Plan of Treatment Health Maintenance Due Date Last Done Comments Depression Screening 1979 Adult BMI Follow Up Plan 1985 Zoster (Shingles) Vaccine (1 of 2) 2017 DTaP,Tdap and Td Vaccines (2 - Td or Tdap) 10/26/2022 10/26/2012 Influenza Vaccine 06/26/2025 Adult BMI Screening 04/11/2026 04/11/2025 Tobacco Screening 04/11/2026 04/11/2025 Medical Devices Not on file Procedures Procedure Name Priority Date/Time Associated Diagnosis Comments XR RIBS RT 3 VWS W PA CHEST STAT 04/11/2025 3:01 PM EDT from Last 3 Months Results * X-ray ribs right 3 views [...] IMG DIAGNOSTIC IMAGING ORDERA BLES Final Result from Last 3 Months Insurance [employer] [address] [place] [address] [employer] Care Teams Flower Buncher Or Picker Relationship Specialty Start Date End Date Ramesh Bravo MD PCP - General Family Medicine 09/28/20
--- OUTSIDE RECORDS SUMMARY | 2025-04-13 08:08 | XMS_ITS | Encounter Summary ---
Author Organization [facility] Address [address] [place] [address] Care Team Providers Care Thermostat Repairer Name Role Phone Ramesh Bravo MD Primary Care Provider [phone] Encounter Details Date Type Department Care Team (Late st Contact Info) Description 11/16/2023 Abstract [facility] [address] [place] [phone] Ken Quinones, DPM [address] [place], [place] [phone] Social History Tobacco Use Types Packs/Day Years [...] on filedocumented in this encounter Care Teams Thermostat Repairer Relationship Specialty Start Date End Date Ramesh Bravo MD PCP - General Family Medicine 07/07/23 documented as of this encounter
--- OUTSIDE RECORDS SUMMARY | 2025-04-13 08:09 | XMS_ITS | CCD ---
Author Organization [facility] Care Team Providers Care Manager Sourcing Name Role Phone LAWRENCE, DR SABILLON Primary Care Unavailable HOY, DR SABILLON Consulting Unavailable HOY, DR SABILLON Attending Unavailable HOY, DR SABILLON Admitting Unavailable NILL, DR HAN Attending Unavailable NILL, DR HAN Admitting Unavailable HOY, DR SABILLON Primary Care Unavailable NILL, DR HAN Attending Unavailable HOY, DR SABILLON Primary Care Unavailable NILL, DR HAN Admitting Unavailable NILL, DR HAN Attending Unavailable NILL, DR HAN Admitting Unavailable HOY, DR SABILLON Primary Care Unavailable HOY, DR SABILLON Consulting Unavailable HOY, DR SABILLON Attending Unavailable HOY, DR SABILLON Admitting Unavailable HOY, DR SABILLON Consulting Unavailable HOY, DR SABILLON Attending Unavailable HOY, DR SABILLON Admitting Unavailable HOY, DR SABILLON Primary Care Unavailable ZIEBER, DR LIYAH Hutchinson Consulting Unavailable HOY, DR SABILLON Consulting Unavailable HOY, DR SABILLON Attending Unavailable HOY, DR SABILLON Admitting Unavailable Bierley Darlene KERR CNP Primary Care Provider Ramandeep Bravo MD Primary Care Provider LEANDRA MARCUS Referring Unavailable RAMANDEEP BRAVO Primary Care Unavailable LAUREANO NUNES Referring Unavailable DARLENE REYES Primary Care Unavailable LAUREANO NUNES Referring Unavailable DARLENE REYES Primary Care Unavailable LAUREANO NUNES Referring Unavailable DARLENE REYES Primary Care Unavailable Ramandeep Bravo Primary Care Physician [phone] Emely GOLDSMITH Attending Unavailable MALINI QUINONES Attending Unavailable MALINI QUINONES Referring Unavailable MALINI QUINONES Referring Unavailable REJI DE LA ROSA Attending Unavailable RAMANDEEP BRAVO Referring Unavailable RAMANDEEP BRAVO Primary Care Unavailable REJI DE LA ROSA Attending Unavailable RAMANDEEP BRAVO Referring Unavailable RAMANDEEP BRAVO Primary Care Unavailable REJI DE LA ROSA Referring Unavailable RAMANDEEP BRAVO Primary Care Unavailable REJI DE LA ROSA Referring Unavailable RAMANDEEP BRAVO Primary Care Unavailable REJI DE LA ROSA Referring Unavailable RAMANDEEP BRAVO Primary Care Unavailable Ramandeep Bravo MD Primary Care Provider [phone] Allergies Allergy Classification Reported Allergen(s) Allergy Type Date of Onset Reaction(s) Facility (1 source) No Known Medication Allergies; Translations: [No Known Medication Allergies] Propensity to adverse reactions (disorder) [facility] Medications Current Medications Medication Drug Class(es) Dates Sig (Normalized) Sig (Original) acetaminophen 500 mg oral tablet (3 sources) take 2 tablets by mouth every six hours as needed for pain acetaminophen (TYLENOL) 500 MG tablet Take 1,000 mg by mouth every 6 hours as needed for Pain 0 Active acetaminophen 325 mg / HYDROcodone bitartrate 5 mg oral tablet (1 source) Opioid Agonist Start: 04-05-2021 End: 04-12-2021 HYDROcodone-acetamin ophen (NORCO) 5-325 MG per tablet Indications: Right inguinal hernia Take 1 tablet by mouth every 6 hours as needed for Pain for up to 7 days. Intended supply: 7 days. Take lowest dose possible to manage pain 10 tablet 0 04/05/2021 04/12/2021 Active Acetaminophen / oxyCODONE (1 source) Opioid Agonist Start: 04-05-2021 End: 04-05-2021 oxyCODONE-acetaminop hen (PERCOCET) 5-325 MG per tablet 1 tablet calcium chloride 0.0014 meq/ml / potassium chloride 0.004 meq/ml / sodium chloride 0.103 meq/ml / sodium lactate 0.028 meq/ml injectable solution (1 source) Start: 04-05-2021 lactated ringers infusion cyclobenzaprine hydrochloride 10 mg oral tablet (9 sources) Muscle Relaxant Start: 10-02-2016 take 1 tablet by mouth three times daily cyclobenzaprine (FLEXERIL) 10 mg tablet Take 10 mg by mouth 3 (three) times a day. 0 11/26/2020 Active take 1 tablet by samir th three times daily as needed for muscle spasms cyclobenzaprine (FLEXERIL) 5 MG tablet T rosa 5 mg by mouth 3 times daily as needed for Muscle spasms 0 Active 1 ml diphenhydrAMINE hydrochloride 50 mg/ml cartridge (1 source) Histamine-1 Receptor Antagonist Start: 04-05-2021 End: 04-05-2021 diphenhydrAMINE (BENADRYL) injection 12.5 mg docusate sodium 100 mg oral capsule (1 source) Start: 04-05-2021 take 1 capsule by mouth twice daily docusate sodium (COLACE) 100 MG capsule Take 1 capsule by mouth 2 times daily 30 capsule 0 04/05/2021 Active famotidine 26.6 mg / ibuprofen 800 mg oral tablet (2 sources) Nonsteroidal Anti-inflammatory Drug, Histamine-2 Receptor Antagonist Start: 12-03-2015 take 1 tablet by mouth once daily as needed ibuprofen-famotidine 800-26.6 MG TABS Take 1 tablet by mouth daily as needed 30 tablet 3 12/03/2015 Active labetalol (NORMODYNE;TRANDATE) injection syringe 10 mg (1 source) Start: 04-05-2021 labetalol (NORMODYNE;TRANDATE) injection syringe 10 mg 10 ml lidocaine hydrochloride 10 mg/ml injection (1 source) Antiarrhythmic, Amide Local Anesthetic Start: 04-05-2021 End: 04-05-2021 lidocaine PF 1 % injection 1 mL 1 ml meperidine hydrochloride 50 mg/ml injection (1 source) Opioid Agonist Start: 04-05-2021 meperidine (DEMEROL) injection 12.5 mg 1 ml morphine sulfate 2 mg/ml cartridge (1 source) Opioid Agonist Start: 04-05-2021 morphine (PF) injection 2 mg pantoprazole 40 mg delayed release oral tablet (2 sources) Proton Pump Inhibitor Start: 11-22-2015 take 1 tablet by mouth twice daily pantoprazole (PROTONIX) 40 MG tablet Indications: Gastroesophageal reflux disease without esophagitis Take 1 tablet by mouth 2 times daily 60 tablet 0 11/22/2015 Active 1 ml promethazine hydrochloride 25 mg/ml injection (1 source) Phenothiazine Start: 04-05-2021 promethazine (PHENERGAN) injection 12.5 mg 3 ml sodium chloride 9 mg/ml injection (4 sources) Start: 04-05-2021 sodium chloride flush 0.9 % injection 10 mL Start: 04-05-2021 End: 04-05-2021 0.9 % sodium chloride bolus Start: 04-05-2021 0.9 % sodium c hloride infusion Start: 04-05-2021 sodium chlorid e flush 0.9 % injection 10 mL Completed/Discontinued Medications Medication Drug Class(es) Dates Sig (Normalized) Sig (Original) 2 ml fentaNYL 0.05 mg/ml injection (1 source) Opioid Agonist Start: 04-05-2021 End: 04-05-2021 fentaNYL (SUBLIMAZE) 100 MCG/2ML injection 1 ml HYDROmorphone hydrochloride 1 mg/ml cartridge (4 sources) Opioid Agonist Start: 04-05-2021 End: 04-05-2021 HYDROmorphone (DILAUDID) 1 MG/ML injection Start: 04-05-2021 HYDROmorphone (DILAUDID) injection 0.5 mg Start: 04-05-2021 HYDROmorphone (DILAUDID) injection 0.25 mg 2 ml midazolam 1 mg/ml injection (1 source) Benzodiazepine Start: 04-05-2021 End: 04-05-2021 midazolam (VERSED) 2 MG/2ML injection 2 ml ondansetron 2 mg/ml injection (2 sources) Serotonin-3 Receptor Antagonist Start: 04-05-2021 End: 04-05-2021 ondansetron (ZOFRAN) 4 MG/2ML injection Start: 04-05-2021 End: 04-05-2021 ondansetron (ZOFRAN) injecti on 4 mg Problems Active Problems Problem Classification Problem Date Documented Da te Episodic/Chronic Abdominal hernia (4 sources) Right inguinal hernia ; Translations: [Unilateral inguinal hernia, without obstruction or gangrene, not specified as recurrent] Episodic Deficiency and other anemia (4 sources) Anemia, unspecified; Translations: [ANEMIA UNSPECIFIED] Onset: 0 Episodic Deficiency and other anemia (2 sources) Iron deficiency anemia; Translations: [Iron deficiency anemia, unspecified] Onset: 3 Episodic Deficiency and other anemia (1 source) Anemia 08-05-2023 Episodic Esophageal disorders (4 sources) Gastroesophageal reflux disease without esophagitis; Translations: [Gastro-esophageal reflux disease without esophagitis] Onset: 6 05-05-2016 Chronic Gastroduodenal ulcer (except hemorrhage) (2 sources) H/O: peptic ulcer; Translations: [Personal history of peptic ulcer disease] Onset: 3 Episodic Other gastrointestinal disorders (1 source) Occult blood in stools 01-15-2021 Episodic Other non-traumatic joint disorders (1 source) Pain in left ankle and joints of left foot; Translations: [Pain in left ankle and joints of left foot] Onset: 4 Episodic Other nutritional; endocrine; and metabolic disorders (1 source) Body mass index 30+ - obesity 08-12-2023 Chronic Other nutritional; endocrine; and metabolic disorders (1 source) Obesity 08-12-2023 Chronic Residual codes; unclassified (1 source) Sleep apnea 10-08-2020 Chronic Screening and history of mental health and substance abuse codes (1 source) Personal history of nicotine dependence; Translations: [PERSONAL HISTORY OF NICOTINE DEPEND] Onset: 1 Episodic Substance-related disorders (2 sources) Nicotine dependence; Translations: [Smoker] 01-15-2021 Chronic Unclassified (1 source) Work Related Injury Onset: 4 Viral infection (1 source) COVID-19; Translations: [COVID-19] Onset: 0 Past or Other Problems Problem Classification Problem Date Documented Date Episodic/Chronic Fracture of lower limb (4 sources) Closed fracture of lateral malleolus; Translations: [Displaced fracture of lateral malleolus of right fibula, initial encounter for closed fracture] Onset: 05-22-2021 01-14-2021 Episodic Headache; including migraine (4 sources) Headache; Translations: [Chronic nonintractable headache] Onset: 05-05-2016 05-05-2016 Episodic Immunizations and screening for infectious disease (3 sources) Encounter for screening for other viral diseases; Translations: [ENC SCREENING FOR OTH VIRAL DZ] Onset: 05-16-2020 Episodic Other connective tissue disease (3 sources) Tendinitis of right posterior tibial tendon; Translations: [Posterior tibial tendinitis, right leg] Onset: 05-22-2021 05-22-2021 Episodic Other non-traumatic joint disorders (1 source) Ankle pain; Translations: [Pain in left ankle and joints of left foot] 12-03-2023 Episodic Other screening for suspected conditions (not mental disorders or infectious disease) (1 source) Encounter for screening for malignant neoplasm of prostate; Translations: [ENC SCREEN MALIG NEOPLASM PROSTATE] Onset: 09-30-2020 Episodic Sprains and strains (4 sources) Sprain of unspecified ligament of left ankle, initial encounter; Translations: [Sprain of left ankle] Onset: 01-01-2024 12-03-2023 Episodic Results Test Name Value Interpretation Reference Range Facility XR Ankle - left 3 Viewson Date xrays obtained :12/03/2023 Standing AP, lateral mortise view of the left ankle was obtained today. This shows no acute fractures or dislocations. MANUALLY TRANSCRIBED RESULTS [facility] Radiology Study observation (narrative) [facility] Consultation Noteon 10-05-20 Consultation Note [id number] #1.00TIFF [facility] Consent for Procedure/Surger yon 08-13-2023 Consent for Procedure/Surgery [id number] #1.00TIFF [facility] Ambulatory Visit Summaryon 1 Ambulatory Visit Summary LEI CHANG :1965 Visit Date:08/12/2023 Ambulatory Visit Instructions Your Care Team Attending Physician - AGUS SOLO, Emely Hutchinson Primary Care Physician - Lawrence SOLO, Ramandeep Procedures Performed History of nasal sinus surgery (10/26/2014), Testicular torsion (10/26/1981), Esophagogastroduoden oscopy, Repair of right inguinal hernia, Sigmoidoscopy. Discharge Vitals Heart Rate (Peripheral) 70 Respiratory Rate 16 Blood Pressure 112/78 Height 180.34 cm Height 71 in Weight 110 kg Weight 242 lb BMI 33.82 Allergies No Known Allergies No Known Medication Allergies Problems Ongoing - Any problem that you are currently receiving treatment for. Anemia BMI 33.0-33.9,adult Closed displaced fracture of lateral malleolus of right fibula with delayed healing Obesity Positive fecal occult blood test Right inguinal hernia Sleep apnea Vaping nicotine dependence, non-tobacco product Historical - Any problem that you are no longer receiving treatment for. Smoker Normal [facility] Facesheeton 08-12-2023 Facesheet [id number]#1.00TIFF [facility] Lab Reportson 07-29-2023 Lab Reports [id number] #1.00CD:127 [facility] Physician Referralon 023 Physician Referral [id number] #1.00CD:127 Normal [facility] COVID-19, RapidOrdered By: Nely Nunes on 04-05-2021 SARS-CoV-2 (COVID-19) RNA SHELLIE+probe Ql (Unsp spec) Not detected Not Detected [employer] Phone: Comment on above: Rapid NAAT: The specimen is NEGATIVE for SARS-CoV-2, the novel coronavirus associated with COVID-19. The ID NOW COVID-19 assay is designed to detect the virus that causes COVID-19 in patients with signs and symptoms of infection who are suspected of COVID-19. An individual without symptoms of COVID-19 and who is not shedding SARS-CoV-2 virus would expect to have a negative (not detected) result in this assay. Negative results should be treated as presumptive and, if inconsistent with clinical signs and symptoms or necessary for patient management, should be tested with an alternative molecular assay. Negative results do not preclude SARS-CoV-2 infection and should not be used as the sole basis for patient management decisions. Fact sheet for Healthcare Providers: https://www.fda.gov/media/027388/download Fact sheet for Patients: https://www.fda.gov/media/574664/download Methodology: Isothermal Nucleic Acid Amplification Specimen Description .NASOPHARYNGEAL SWAB [employer] Phone: [employer] Phone: [id number] 04-05-2021 SARS-CoV-2 (COVID-19) RNA SHELLIE+probe Ql (Unsp spec) Not detected Normal NOTDET [facility] Comment on above: Result Comment: Rapid NAAT: The specimen is NEGATIVE for SARS-CoV-2, the novel coronavirus associated with COVID-19. The ID NOW COVID-19 assay is designed to detect the virus that causes COVID-19 in patients with signs and symptoms of infection who are suspected of COVID-19. An individual without symptoms of COVID-19 and who is not shedding SARS-CoV-2 virus would expect to have a negative (not detected) result in this assay. Negative results should be treated as presumptive and, if inconsistent with clinical signs and symptoms or necessary for patient management, should be tested with an alternative molecular assay. Negative results do not preclude SARS-CoV-2 infection and should not be used as the sole basis for patient management decisions. Fact sheet for Healthcare Providers: https://www.fda.gov/media/946563/download Fact sheet for Patients: https://www.fda.gov/media/931872/download Methodology: Isothermal Nucleic Acid Amplification Performed By: #### C OVRB #### [place] [id number] Sort Line Worker: Duarte Roman MD Basic Metabolic PanelOrdered By: Laureano Nunes on 03-26-2021 Anion gap [Moles/Vol] 11 mmol/L 9 - 17 mmol/L [employer] Phone: Calcium [Mass/Vol] 8.9 mg/dL 8.6 - 10. 4 mg/dL [employer] Phone: Chloride [Moles/Vol] 104 mmol/L 98 - 10 7 mmol/L [employer] Phone: CO2 [Moles/Vol] 25 mmol/L 20 - 31 mmol/L [employer] Phone: Creatinine [Mass/Vol] 1.12 mg/dL 0.70 - 1.20 mg/dL [employer] Phone: GFR >60 >60 mL/min [employer] Phone: GFR Non- >60 >60 mL/min [employer] Phone: GFR/1.73 sq M.predicted MDRD (S/P/Bld) [Vol rate/Area] [employer] Phone: Comment on above: Average GFR for 50-5 9 years old: 93 mL/min/1.73sq m Chronic Kidney Disease: <60 mL/min/1.73sq m Kidney failure: <15 mL/min/1.73sq m eGFR calculated using average adult body mass. Additional eGFR calculator available at: http://www.[employer] [place]/Polar OLED_crcl_2012.htm GFR/1.73 sq M.predicted MDRD (S/P/Bld) [Vol rate/Area] NOT REPORTED [employer] Phone: Glucose [Mass/Vol] 86 mg/dL 70 - 99 mg/dL [employer] Phone: Potassium [Moles/Vol] 4.5 mmol/L 3.7 - 5.3 mmol/L [employer] Phone: Sodium [Moles/Vol] 140 mmol/L 135 - 144 mmol/L [employer] Phone: Urea nitrogen (BldV) [Mass/Vol] 16 mg/dL 6 - 20 mg/dL [employer] Phone: Urea nitrogen/Creatinine (Bld) [Mass ratio] NOT REPORTED [employer] Phone: [employer] Phone: Basic Metabolic Profon 03-26 (cont.) Normal [facility] Comment on above: Result Comment: Aver age GFR for 50-59 years old: 93 mL/min/1.73sq m Chronic Kidney Disease: <60 mL/min/1.73sq m Kidney failure: <15 mL/min/1.73sq m eGFR calculated using average adult body mass. Additional eGFR calculator available at: http://www.[employer] [place]/Polar OLED_crcl_2012.htm Performed By: #### C BC, BMP #### [employer] [address] [place] [address] Sort Line Worker: Rey Briseno MD Anion gap [Moles/Vol] 11 mmol/L Normal 9-17 [facility] Comment on above: Performed By: #### C BC, BMP #### [address] [id number] Sort Line Worker: Rey Briseno MD Calcium [Mass/Vol] 8.9 mg/dL Normal 8.6-10.4 [facility] Comment on above: Performed By: #### C BC, BMP #### [address] [address] Sort Line Worker: Rey Briseno MD Chloride [Moles/Vol] 104 mmol/L Normal 98-107 [facility] Comment on above: Performed By: #### C BC, BMP #### [address] [id number] Sort Line Worker: Rey Briseno MD CO2 [Moles/Vol] 25 mmol/L Normal 20-31 [facility] Comment on above: Performed By: #### C BC, BMP #### [address] [address] Sort Line Worker: Rey Briseno MD Creatinine [Mass/Vol] 1.12 mg/dL Normal 0.70-1.20 [facility] Comment on above: Performed By: #### C BC, BMP #### [facility] [employer] [address] [place] [phone] Sort Line Worker: Rey Briseno MD GFR, Amer >60 Normal >60 [facility] Comment on above: Performed By: #### C BC, BMP #### [facility] [employer] [address] [place] [phone] Sort Line Worker: Rey Briseno MD GFR,non Amer >60 Normal >60 [facility] Comment on above: Performed By: #### C BC, BMP #### [facility] [employer] [address] [place] [phone] Sort Line Worker: Rey Briseno MD Glucose [Mass/Vol] 86 mg/dL Normal 70-99 [facility] Comment on above: Performed By: #### C BC, BMP #### [address] [address] Sort Line Worker: Rey Briseno MD Potassium [Moles/Vol] 4.5 mmol/L Normal 3.7-5.3 [facility] Comment on above: Performed By: #### C BC, BMP #### [facility] [employer] [address] [place] [phone] Sort Line Worker: Rey Briseno MD Sodium [Moles/Vol] 140 mmol/L Normal 135-144 [facility] Comment on above: Performed By: #### C BC, BMP #### [facility] [employer] [address] [place] [phone] Sort Line Worker: Rey Briseno MD Urea nitrogen [Mass/Vol] 16 mg/dL Normal 6-20 [facility] Comment on above: Performed By: #### C BC, BMP #### [facility] [employer] [address] [place] [phone] Sort Line Worker: Rey Briseno MD BUN/CRE Ratio NOT REPORTED Normal 9-20 [facility] Comment on above: Performed By: #### C BC, BMP #### [facility] [employer] [address] [place] [phone] Sort Line Worker: Rey Briseno MD Staging: NOT REPORTED Normal [facility] Comment on above: Performed By: #### C BC, BMP #### [facility] [employer] [address] [place] [phone] Sort Line Worker: Rey Briseno MD CBCon 03-26-2021 Erythrocyte distribution width (RBC) [Ratio] 11.9 % Normal 11.8-14.4 [facility] Comment on above: Performed By: #### C BC, BMP #### [address] [address] Sort Line Worker: Rey Briseno MD Hematocrit (Bld) [Volume fraction] 44.2 % Normal 40.7-50.3 [facility] Comment on above: Performed By: #### C BC, BMP #### [address] [phone] Sort Line Worker: Rey Briseno MD Hemoglobin (Bld) [Mass/Vol] 14.4 g/dL Normal 13.0-17.0 [facility] Comment on above: Performed By: #### C BC, BMP #### [address] [address] Sort Line Worker: Rey Briseno MD MCH (RBC) [Entitic mass] 30.6 pg Normal 25.2-33.5 [facility] Comment on above: Performed By: #### C BC, BMP #### [address] [address] Sort Line Worker: Rey Briseno MD MCHC (RBC) [Mass/Vol] 32.6 g/dL Normal 28.4-34.8 [facility] Comment on above: Performed By: #### C BC, BMP #### [address] [address] Sort Line Worker: Rey Briseno MD MCV (RBC) [Entitic vol] 93.8 fL Normal 82.6-102.9 [facility] Comment on above: Performed By: #### C BC, BMP #### [address] [address] Sort Line Worker: Rey Briseno MD NRBC Automated 0.0 per 100 WBC Normal 0.0 [facility] Comment on above: Performed By: #### C BC, BMP #### [employer] [address] [place] [address] Sort Line Worker: Rey Briseno MD Platelet mean volume (Bld) [Entitic vol] 10.1 fL Normal 8.1-13.5 [facility] Comment on above: Performed By: #### C BC, BMP #### [facility] [employer] [facility] [place] [address] Sort Line Worker: Rey Briseno MD Platelets (Bld) [#/Vol] 235 10*3/uL Normal 138-453 [facility] Comment on above: Performed By: #### C BC, BMP #### [facility] [employer] [address] [place] [phone] Sort Line Worker: Rey Briseno MD RBC (Bld) [#/Vol] 4.71 10*6/uL Normal 4.21-5.77 [facility] Comment on above: Performed By: #### C BC, BMP #### [facility] [employer] [address] [place] [phone] Sort Line Worker: Rey Briseno MD WBC (Bld) [#/Vol] 5.0 10*3/uL Normal 3.5-11.3 [facility] Comment on above: Performed By: #### C BC, BMP #### [address] [address] Sort Line Worker: Rey Briseno MD CBCOrdered By: Laureano Nunes on 03-26-2021 Hematocrit (Bld) [Volume fraction] 44.2 % 40.7 - 50.3 % [employer] Phone: Hemoglobin.gastroint estinal spec 1 Ql (Stl) 14.4 g/dL 13.0 - 17.0 g/dL [employer] Phone: MCH (RBC) [Entitic mass] 30.6 pg 25.2 - 33.5 pg [employer] Phone: MCHC (RBC) [Mass/Vol] 32.6 g/dL 28.4 - 34.8 g/dL [employer] Phone: MCV (RBC) [Entitic vol] 93.8 fL 82.6 - 102.9 fL [employer] Phone: NRBC Automated 0.0 0.0 per 100 WBC [employer] Phone: Platelet distribution width (Bld) [Ratio] 11.9 % 11.8 - 14.4 % [employer] Phone: Platelet mean volume (Bld) [Entitic vol] 10.1 fL 8.1 - 13.5 fL [employer] Phone: Platelets (Bld) [#/Vol] 235 10*3/uL [employer] Phone: RBC (Bld) [#/Vol] 4.71 10*6/uL 4.21 - 5.7 7 m/uL [employer] Phone: WBC (Bld) [#/Vol] 5.0 10*3/uL [employer] Phone: [employer] Phone: US PELVIS LIMITEDon 03-26-20 21 US PELVIS LIMITED EXAMINATION: PELVIC ULTRASOUND 03/26/2021 TECHNIQUE: Targeted ultrasonography over the right inguinal canal. COMPARISON: None HISTORY: ORDERING SYSTEM PROVIDED HISTORY: Right inguinal hernia TECHNOLOGIST PROVIDED HISTORY: This procedure can be scheduled via [employer]. Access your [employer] account by visiting [employer]. right inguinal bulge Reason for Exam: rt inguinal bulge; ?hernia Acuity: Chronic Type of Exam: Initial FINDINGS: Targeted ultrasonography over palpable lump in the right inguinal canal reveals complex hypoechoic structure approximately 3 by 3 cm which demonstrates change in size on Valsalva, findings consistent with inguinal hernia. No edema of the hernia wall is demonstrated. IMPRESSION: Findings most compatible with inguinal hernia of 3 cm. No edema of the hernia wall is noted. No air is present in the hernia. Echogenicities suggest predominantly fatty hernia. Interpreted by: Oralia Montalvo MD Signed by: Oralia Montalvo MD 03/26/21 Final result Normal [facility] US PELVIS LIMITEDOrdered By: Laureano Nunes on 03-26-2021 Findings most compatible with inguinal hernia of 3 cm. No edema of the hernia wall is noted. No air is present in the hernia. Echogenicities suggest predominantly fatty hernia. [employer] Phone: EXAMINATION: PELVIC ULTRASOUND 03/26/2021 TECHNIQUE: Targeted ultrasonography over the right inguinal canal. COMPARISON: None HISTORY: ORDERING SYSTEM PROVIDED HISTORY: Right inguinal hernia TECHNOLOGIST PROVIDED HISTORY: This procedure can be scheduled via [employer]. Access your [employer] account by visiting [employer]. right inguinal bulge Reason for Exam: rt inguinal bulge; ?hernia Acuity: Chronic Type of Exam: Initial FINDINGS: Targeted ultrasonography over palpable lump in the right inguinal canal reveals complex hypoechoic structure approximately 3 by 3 cm which demonstrates change in size on Valsalva, findings consistent with inguinal hernia. No edema of the hernia wall is demonstrated. [employer] Phone: Moo, pn Incoming Radiant Results From [employer] - 03/26/2021 4:18 PM EDT EXAMINATION: PELVIC ULTRASOUND 03/26/2021 TECHNIQUE: Targeted ultrasonography over the right inguinal canal. COMPARISON: None HISTORY: ORDERING SYSTEM PROVIDED HISTORY: Right inguinal hernia TECHNOLOGIST PROVIDED HISTORY: This procedure can be scheduled via [employer]. Access your [employer] account by visiting [employer]. right inguinal bulge Reason for Exam: rt inguinal bulge; ?hernia Acuity: Chronic Type of Exam: Initial FINDINGS: Targeted ultrasonography over palpable lump in the right inguinal canal reveals complex hypoechoic structure approximately 3 by 3 cm which demonstrates change in size on Valsalva, findings consistent with inguinal hernia. No edema of the hernia wall is demonstrated. IMPRESSION: Findings most compatible with inguinal hernia of 3 cm. No edema of the hernia wall is noted. No air is present in the hernia. Echogenicities suggest predominantly fatty hernia. [employer] Phone: [employer] Phone: CBC AUTO DIFFon 10-17-2020 BASO # 0.1 103/ul Normal 0.0-0.1 [facility] Comment on above: Performed By: #### C BC #### [facility] [address] [id number] Francie Hannah Basophils/100 WBC (Bld) 1.4 % Normal 0.2-2.0 [facility] Comment on above: Performed By: #### C BC #### [facility] [address] [id number] Francie Hannah EO # 0.3 103/ul Normal 0.0-0.7 [facility] Comment on above: Performed By: #### C BC #### [facility] [address] [id number] Francie Hannah Eosinophils/100 WBC (Bld) 5.9 % Normal 0.9-7.0 [facility] Comment on above: Performed By: #### C BC #### [facility] [address] [place], [place] [phone] Francie Hannah Erythrocyte distribution width (RBC) [Ratio] 12.1 % Normal 11.0-15.0 [facility] Comment on above: Performed By: #### C BC #### [facility] [address] [place], [place] [phone] Francie Hannah Hematocrit (Bld) [Volume fraction] 43.3 % Normal 42.0-54.0 [facility] Comment on above: Performed By: #### C BC #### [facility] [address] [place], [place] [phone] Francie Hannah Hemoglobin (Bld) [Mass/Vol] 14.4 g/dL Normal 14.0-18.0 [facility] Comment on above: Performed By: #### C BC #### [facility] [address] [place], [place] [phone] Francie Hannah IG # 0.01 10e3/ul Normal 0.00-0.03 [facility] Comment on above: Performed By: #### C BC #### [facility] [address] [place] [address] Francie Hannah IG % 0.2 % Normal 0.0-0.5 [facility] Comment on above: Performed By: #### C BC #### [facility] [address] [id number] Francie Hannah LYMPH # 1.5 103/ul Normal 1.2-3.8 [facility] Comment on above: Performed By: #### C BC #### [facility] [address] [place], [place] [address] Francie Hannah Lymphocytes/100 WBC (Bld) 27.4 % Normal 20.5-60.0 [facility] Comment on above: Performed By: #### C BC #### [facility] [address] [place] [address] Francie Hannah MANUAL DIFF REQ NO Normal [facility] Comment on above: Performed By: #### C BC #### [facility] [address] [place], [place] [phone] Francie Hannah MCH (RBC) [Entitic mass] 31.2 pg Normal 25.9-34.0 [facility] Comment on above: Performed By: #### C BC #### [facility] [address] [place], [place] [phone] Francie Hannah MCHC (RBC) [Mass/Vol] 33.3 g/dL Normal 29.9-35.2 [facility] Comment on above: Performed By: #### C BC #### [facility] [address] [place], [place] [phone] Francie Hannah MCV (RBC) [Entitic vol] 93.9 fL Normal 80.0-94.0 [facility] Comment on above: Performed By: #### C BC #### [facility] [address] [place], [place] [phone] Francie Hannah MONO # 0.6 103/ul Normal 0.3-0.8 [facility] Comment on above: Performed By: #### C BC #### [facility] [address] [place], [place] [phone] Francie Hannah Monocytes/100 WBC (Bld) 10.2 % Normal 1.7-12.0 [facility] Comment on above: Performed By: #### C BC #### [facility] [address] [place], [place] [address] Francie Young NEUT # 3.1 103/ul Normal 1.4-6.5 [facility] Comment on above: Performed By: #### C BC #### [facility] [address] [place], [place] [address] Francie Young Neutrophils/100 WBC (Bld) 54.9 % Normal 43.0-75.0 [facility] Comment on above: Performed By: #### C BC #### [facility] [address] [place], [place] [address] Francie Young Platelet mean volume (Bld) [Entitic vol] 9.1 fL Critically low 9.5-13.5 [facility] Comment on above: Performed By: #### C BC #### [facility] [address] [phone] Francie Young PLT 213 103/ul Normal 150-450 [facility] Comment on above: Performed By: #### C BC #### [facility] [address] [phone] Francie Young RBC 4.61 106/ul Critically low 4.70-6.10 [facility] Comment on above: Performed By: #### C BC #### [facility] [address] [place], [place] [address] Francie Young WBC 5.6 103/ul Normal 4.0-11.0 [facility] Comment on above: Performed By: #### C BC #### [facility] [address] [place], [place] [address] Francie Young XR CHEST 2 Von 10-17-2020 XR CHEST 2 V EXAMINATION: XR CHEST 2 V HISTORY: Tobacco dependence syndrome COMPARISON: No relevant comparison available. FINDINGS: LUNGS: No significant pulmonary parenchymal abnormalities. VASCULATURE: No increased pulmonary vasculature. PLEURA: No pneumothorax, effusion, or pleural thickening. CARDIAC: No cardiomegaly or cardiac silhouette abnormality. MEDIASTINUM: No visible mass or adenopathy. BONES: No fracture or visible bone lesion. OTHER: Negative. IMPRESSION: Normal examination. Electronically authenticated by: LIYAH HENRIQUEZ Date: 2020-10-17 16:13 Normal [facility] INSULINon 09-27-2020 Insulin 5.4 uIU/mL Normal 2.6-24.9 [facility] Comment on above: Performed By: #### I NSULIN #### [facility] [address] [place], [place] [phone] Francieaimee Young OCC BLD IMMUNOASSAYon 2019 OCCULT BLOOD Positive Normal NEGATIVE [facility] Comment on above: Performed By: #### O GABY #### [facility] [address] [place], [place] [phone] Francie Hannah CBC AUTO DIFFon 09-26-2020 BASO # 0.1 103/ul Normal 0.0-0.1 [facility] Comment on above: Performed By: #### C BC #### [facility] [address] [place] [address] Francieaimee Young Basophils/100 WBC (Bld) 1.5 % Normal 0.2-2.0 [facility] Comment on above: Performed By: #### C BC #### [facility] [address] [place] [address] Francie Hannah EO # 0.3 103/ul Normal 0.0-0.7 [facility] Comment on above: Performed By: #### C BC #### [facility] [address] [place], [place] [phone] Francieaimee Young Eosinophils/100 WBC (Bld) 8.0 % Critically high 0.9-7.0 [facility] Comment on above: Performed By: #### C BC #### [facility] [address] [place] [address] Francie Hannah Erythrocyte distribution width (RBC) [Ratio] 12.3 % Normal 11.0-15.0 [facility] Comment on above: Performed By: #### C BC #### [facility] [address] [place] [address] Francie Hannah Hematocrit (Bld) [Volume fraction] 42.6 % Normal 42.0-54.0 [facility] Comment on above: Performed By: #### C BC #### [facility] [address] [place], [place] [phone] Francie Hannah Hemoglobin (Bld) [Mass/Vol] 13.9 g/dL Critically low 14.0-18.0 [facility] Comment on above: Performed By: #### C BC #### [facility] [address] [place] [address] Francieaimee Young IG # 0.01 10e3/ul Normal 0.00-0.03 [facility] Comment on above: Performed By: #### C BC #### [facility] [address] [place] [address] Francieaimee Young IG % 0.3 % Normal 0.0-0.5 [facility] Comment on above: Performed By: #### C BC #### [facility] [address] [place] [address] Francieaimee Young LYMPH # 1.2 103/ul Normal 1.2-3.8 [facility] Comment on above: Performed By: #### C BC #### [facility] [address] [place] [address] Francie Young Lymphocytes/100 WBC (Bld) 37.5 % Normal 20.5-60.0 [facility] Comment on above: Performed By: #### C BC #### [facility] [address] [place] [address] Francie Young MANUAL DIFF REQ NO Normal [facility] Comment on above: Performed By: #### C BC #### [facility] [address] [place] [address] Francie Young MCH (RBC) [Entitic mass] 30.8 pg Normal 25.9-34.0 [facility] Comment on above: Performed By: #### C BC #### [facility] [address] [place] [address] Francieaimee Young MCHC (RBC) [Mass/Vol] 32.6 g/dL Normal 29.9-35.2 [facility] Comment on above: Performed By: #### C BC #### [facility] [address] [place] [address] Francie Young MCV (RBC) [Entitic vol] 94.5 fL Critically high 80.0-94.0 [facility] Comment on above: Performed By: #### C BC #### [facility] [address] [place], [place] [address] Francieaimee Cowanen MONO # 0.4 103/ul Normal 0.3-0.8 [facility] Comment on above: Performed By: #### C BC #### [facility] [address] [place], [place] [address] Francie Cowanen Monocytes/100 WBC (Bld) 13.2 % Critically high 1.7-12.0 [facility] Comment on above: Performed By: #### C BC #### [facility] [address] [phone] Francie Hannah NEUT # 1.3 103/ul Critically low 1.4-6.5 [facility] Comment on above: Performed By: #### C BC #### [facility] [address] [phone] Francie Cowanen Neutrophils/100 WBC (Bld) 39.5 % Critically low 43.0-75.0 [facility] Comment on above: Performed By: #### C BC #### [facility] [address] [place], [place] [address] Francie Young Platelet mean volume (Bld) [Entitic vol] 9.7 fL Normal 9.5-13.5 [facility] Comment on above: Performed By: #### C BC #### [facility] [address] [id number] Francie Hannah PLT 208 103/ul Normal 150-450 [facility] Comment on above: Performed By: #### C BC #### [facility] [address] [phone] Francie Hannah RBC 4.51 106/ul Critically low 4.70-6.10 [facility] Comment on above: Performed By: #### C BC #### [facility] [address] [phone] Francie Hannah WBC 3.3 103/ul Critically low 4.0-11.0 [facility] Comment on above: Performed By: #### C BC #### [facility] [address] [place], [place] [address] Francie Hannah GLYCOHEMOGLOBIN A1Con 2019 Glucose [Mass/Vol] 111 mg/dL Normal [facility] Comment on above: Performed By: #### A 1C #### [facility] [address] [place], [place] [address] Francie Hannah HbA1c (Bld) [Mass fraction] 5.5 % Normal <=6.0 [facility] Comment on above: Performed By: #### A 1C #### [facility] [address] [place], [place] [address] Francie Hannah LIPID PROFILEon 09-26-2020 CHOL-HDL RATIO NORM SEE BELOW Normal [facility] Comment on above: Result Comment: 3.3 - 4.4 LOW RISK 4.4 - 7.1 AVERAGE RISK 7.1 - 11.0 MODERATE RISK >11.0 HIGH RISK Performed By: #### C MP, PSASC, LIPID #### [facility] [address] [phone] Francie Ahnnah Cholesterol [Mass/Vol] 140 mg/dL Normal <=200 [facility] Comment on above: Performed By: #### C MP, PSASC, LIPID #### [facility] [address] [place], [place] [address] Francie Hannah Cholesterol in HDL [Mass/Vol] 52 mg/dL Normal [facility] Comment on above: Performed By: #### C MP, PSASC, LIPID #### [facility] [address] [place], [place] [address] Francie Hannah Cholesterol in LDL [Mass/Vol] 81.2 mg/dL Normal [facility] Comment on above: Performed By: #### C MP, PSASC, LIPID #### [facility] [address] [place], [place] [address] Francie Hannah Cholesterol.total/Ch olesterol in HDL [Mass ratio] 2.7 {ratio} Normal [facility] Comment on above: Performed By: #### C MP, PSASC, LIPID #### [facility] [address] [place], [place] [address] Francie Hannah HDL NORMAL > or = 60 mg/dl - LOW CARDIOVASCULAR RISK <40 mg/dl - HIGH CARDIOVASCULAR RISK Normal [facility] Comment on above: Performed By: #### C MP, PSASC, LIPID #### [facility] [address] [place], [place] [address] Francie Hannah LDL CALC NORMAL SEE BELOW Normal [facility] Comment on above: Result Comment: <100 mg/dl OPTIMAL 100 - 129 mg/dl NEAR OR ABOVE OPTIMAL 130 - 159 mg/dl BORDERLINE HIGH 160 - 189 mg/dl HIGH >190 mg/dl VERY HIGH Performed By: #### C MP, PSASC, LIPID #### [facility] [address] [place], [place] [address] Francie Hannah Triglyceride [Mass/Vol] 34 mg/dL Normal <=150 [facility] Comment on above: Performed By: #### C MP, PSASC, LIPID #### [facility] [address] [place], [place] [address] Francie Hannah VLDL CALC 6.8 mg/dL Normal [facility] Comment on above: Performed By: #### C MP, PSASC, LIPID #### [facility] [address] [place], [place] [address] Francie Young PROF 14(COMP METB)on 020 Albumin [Mass/Vol] 3.9 g/dL Normal 3.5-5.0 [facility] Comment on above: Performed By: #### C MP, PSASC, LIPID #### [facility] [address] [place], [place] [address] Francie Hannah Albumin/Globulin [Mass ratio] 1.3 {ratio} Normal [facility] Comment on above: Performed By: #### C MP, PSASC, LIPID #### [facility] [address] [place], [place] [address] Francie Hannah ALP [Catalytic activity/Vol] 43 U/L Normal 38-126 [facility] Comment on above: Performed By: #### C MP, PSASC, LIPID #### [facility] [address] [place], [place] [address] Francie Hannah ALT [Catalytic activity/Vol] 31 U/L Normal 21-72 [facility] Comment on above: Performed By: #### C MP, PSASC, LIPID #### [facility] [address] [phone] Francie Hannah Anion gap [Moles/Vol] 9.3 mmol/L Normal [facility] Comment on above: Performed By: #### C MP, PSASC, LIPID #### [facility] [address] [address] Francie Hannah AST [Catalytic activity/Vol] 19 U/L Normal 17-59 [facility] Comment on above: Performed By: #### C MP, PSASC, LIPID #### [facility] [address] [address] Francie Hannah Bilirubin [Mass/Vol] 0.6 mg/dL Normal 0.2-1.3 [facility] Comment on above: Performed By: #### C MP, PSASC, LIPID #### [facility] [address] [place] [address] Francie Hannah Calcium [Mass/Vol] 8.8 mg/dL Normal 8.4-10.2 [facility] Comment on above: Performed By: #### C MP, PSASC, LIPID #### [facility] [address] [place] [address] Francie Hannah Chloride [Moles/Vol] 104 mmol/L Normal 98-107 [facility] Comment on above: Performed By: #### C MP, PSASC, LIPID #### [facility] [address] [id number] Francie Hannah CO2 [Moles/Vol] 31.0 mmol/L Critically high 22.0-30.0 [facility] Comment on above: Performed By: #### C MP, PSASC, LIPID #### [facility] [address] [place], [place] [address] Francie Hannah Creatinine [Mass/Vol] 1.02 mg/dL Normal 0.66-1.25 [facility] Comment on above: Performed By: #### C MP, PSASC, LIPID #### [facility] [address] [place], [place] [address] Francie Hananh EGFR-AF DUTCH >60 Normal >=60 [facility] Comment on above: Performed By: #### C MP, PSASC, LIPID #### [facility] [address] [id number] Francie Hannah EGFR-NON AF DUTCH >60 Normal >=60 [facility] Comment on above: Performed By: #### C MP, PSASC, LIPID #### [facility] [address] [id number] Francie Hannah Globulin (S) [Mass/Vol] 3.1 g/dL Normal [facility] Comment on above: Performed By: #### C MP, PSASC, LIPID #### [facility] [address] [place] [address] Francie Hannah Glucose [Mass/Vol] 94 mg/dL Normal 74-106 [facility] Comment on above: Performed By: #### C MP, PSASC, LIPID #### [facility] [address] [place] [address] Francie Hannah Potassium [Moles/Vol] 4.3 mmol/L Normal 3.4-5.0 [facility] Comment on above: Performed By: #### C MP, PSASC, LIPID #### [facility] [address] [place] [address] Francie Hannah Protein [Mass/Vol] 7.0 g/dL Normal 6.1-8.2 [facility] Comment on above: Performed By: #### C MP, PSASC, LIPID #### [facility] [address] [place] [address] Francie Hannah Sodium [Moles/Vol] 140 mmol/L Normal 137-145 [facility] Comment on above: Performed By: #### C MP, PSASC, LIPID #### [facility] [address] [place] [address] Francie Hannah Urea nitrogen [Mass/Vol] 16.0 mg/dL Normal 9.0-20.0 [facility] Comment on above: Performed By: #### C MP, PSASC, LIPID #### [facility] [address] [place] [address] Francie Young Urea nitrogen/Creatinine [Mass ratio] 15.7 mg/mg Normal [facility] Comment on above: Performed By: #### C MP, PSASC, LIPID #### [facility] [address] [place], [place] [address] Francie Young COVID-19 PCRon 05-18-2020 SARS-CoV-2 (COVID-19) RNA SHELLIE+probe Ql (Unsp spec) Detected Abnormal Not Detected [facility] Comment on above: Result Comment: This test was developed and its performance characteristics determined by [employer]. This test has not been FDA cleared or approved. This test has been authorized by FDA under an Emergency Use Authorization (EUA). This test is only authorized for the duration of time the declaration that circumstances exist justifying the authorization of the emergency use of in vitro diagnostic tests for detection of SARS-CoV-2 virus and/or diagnosis of COVID-19 infection under section 564(b)(1) of the Act, 21 U.S.C. 360bbb-3(b)(1), unless the authorization is terminated or revoked sooner. When diagnostic testing is negative, the possibility of a false negative result should be considered in the context of a patient's recent exposures and the presence of clinical signs and symptoms consistent with COVID-19. An individual without symptoms of COVID-19 and who is not shedding SARS-CoV-2 virus would expect to have a negative (not detected) result in this assay. Performed By: #### C VDPCR #### [facility] [address] [place], [place] [address] Francie Young Vital Signs Date Time Vital Sign Value Performing Clinician Facility 01-29-2024 [id number] Body height 177.8 cm Reji De La Rosa MD [email or web address] 01-29-2024 10:39-0400 Body mass index (BMI) [Ratio] 34.44 kg/m2 Reji De La Rosa MD [facility] 01-29-2024 10:39-0400 Body weight 108.86 kg Reji De La Rosa MD Work Phone: [employer] 01-01-2024 10:08-0500 Body height 177.8 cm Reji De La Rosa MD Work Phone: [employer] 01-01-2024 10:08-0500 Body mass index (BMI) [Ratio] 34.44 kg/m2 Reji De La Rosa MD Work Phone: [employer] 01-01-2024 10:08-0500 Body weight 108.86 kg Reji De La Rosa MD Work Phone: [employer] 08-12-2023 14:05-0400 Blood Pressure Location [facility] 08-12-2023 14:05-0400 Diastolic blood pressure 78 mm[Hg] Emely [facility] 08-12-2023 14:05-0400 Heart rate 70 /min Emely ENRI[facility] 08-12-2023 14:05-0400 Respiratory rate 16 /min Emely ENRIQU[facility] 08-12-2023 14:05-0400 Systolic blood pressure 112 mm[Hg] Emely ENRIQU[facility] 04-05-2021 18:10-0400 Heart rate 62 /min Laureano Nunes DO Work Phone: [employer] Work Phone: 04-05-2021 18:10-0400 SaO2% (BldA) [Mass fraction] 98 % Laureano Nunes DO Work Phone: [employer] Work Phone: 04-05-2021 18:00-0400 Diastolic blood pressure 73 mm[Hg] Laureano Nunes DO Work Phone: [employer] Work Phone: 04-05-2021 18:00-0400 Respiratory rate 20 /min Laureano Nunes DO Work Phone: [employer] Work Phone: 04-05-2021 18:00-0400 Systolic blood pressure 125 mm[Hg] Laureano Nunes DO Work Phone: [employer] Work Phone: 04-05-2021 17:25-0400 Body temperature 97.59 [degF] Laureano Nunes [employer] Work Phone: [employer] Work Phone: 04-05-2021 12:45-0400 Body height 180.3 cm Laureano Nunes [employer] Work Phone: [employer] Phone: 04-05-2021 12:45-0400 Body mass index (BMI) [Ratio] 35.7 kg/m2 Laureano Nunes [employer] Work Phone: [employer] Phone: 04-05-2021 12:45-0400 Body weight 116.12 kg Laureano Nunes [employer] Work Phone: [employer] Phone: Encounters Encounter Date Encounter Type Care Provider Facility Start: 01-29-2024 End: 01-29-2024 Office outpatient visit 15 minutes Reji De La Rosa MD Work Phone: [facility] Comment on above: Sprain of left ankle , unspecified ligament, initial encounter (Primary Dx) Start: 01-01-2024 End: 01-01-2024 ambulatory REJI Power [facility] Start: 01-01-2024 End: 01-01-2024 Office outpatient visit 15 minutes Reji De La Rosa MD Work Phone: [facility] Comment on above: Sprain of left ankle , unspecified ligament, initial encounter (Primary Dx) Start: 12-25-2023 End: 01-25-2024 ambulatory [facility] Start: 12-15-2023 End: 12-25-2023 [facility] Start: 12-03-2023 End: 12-03-2023 ambulatory REJI [facility] Start: 12-03-2023 End: 12-03-2023 Office outpatient visit 15 minutes Reji De La Rosa MD Work Phone: [facility] Comment on above: Sprain of left ankle , unspecified ligament, initial encounter (Primary Dx); Left ankle pain, unspecified chronicity Start: 11-16-2023 End: 11-16-2023 ambulatory MALINI Tran ED Not Available Start: 08-12-2023 End: 08-13-2023 ambulatory Emely GOLDSMITH Facility: [place] Start: 08-12-2023 End: 08-12-2023 Patient encounter procedure Emely GOLDSMITH General Surgery [facility] Start: 04-05-2021 End: 04-05-2021 Patient encounter status Laureano Nunes DO Work Phone: [facility] [place] Start: 04-05-2021 End: 04-05-2021 Subsequent hospital visit by physician Laureano Nunes DO Work Phone: [facility] Comment on above: Pre-op testing (Prim dong Dx); Right inguinal hernia Start: 04-01-2021 End: 04-01-2021 Patient encounter status [facility] Schedule [facility] Covid Screening Start: 04-01-2021 End: 04-01-2021 Subsequent hospital visit by physician Devika Covid Screening Schedule [facility] Covid Screening Comment on above: Preop testing (Prima ry Dx) Start: 03-28-2021 End: 03-29-2021 ambulatory [facility] Start: 03-28-2021 End: 03-28-2021 Subsequent hospital visit by physician Ramandeep Bravo MD Work Phone: [facility] Start: 03-26-2021 End: 03-29-2021 ambulatory LAUREANO D SUNDAY [facility] Start: 03-26-2021 End: 03-28-2021 Subsequent hospital visit by physician Bhargavi [facility] Comment on above: Right inguinal herni a Start: 02-06-[address] EMELY Thomas y:H1 Start: 02-01-[address] EMELY Thomas y:H1 Start: 01-30-[address] EMELY Thomas y:H1 Start: 10-17-2020 End: 10-18-[address] RAMANDEEP BRAVO Facility:[facility] Start: 10-01-2020 Encounter for genera l adult medical examination without abnormal findings DR RAMANDEEP BRAVO [facility] Start: 09-27-2020 End: 09-27-[address] RAMANDEEP BRAVO Facility:[facility] Start: 09-27-2020 End: 09-27-2020 Encounter for general adult medical examination without abnormal findings DR RAMANDEEP BRAVO Facility:[facility] Start: 09-26-2020 End: 09-27-[address] RAMANDEEP BRAVO Facility:[facility] Start: 05-16-2020 End: 05-17-[address] RAMANDEEP BRAVO Facility:[facility] Procedures Date Procedure Procedure Detail Performing Clinician Start: 01-01-2024 Follow-up visit Follow-up REJI DE LA ROSA Start: 04-05-2021 COVID-19, RAPID Laureano Nunes DO Work Phone: Start: 03-26-2021 Us pelvic nonobstetric image dcmtn limited/f/u Laureano Nunes DO Work Phone: Start: 03-26-2021 Basic metabolic panel calcium total Laureano Nunes DO Work Phone: Start: 09-26-[address] RAMANDEEP BRAVO Comment on above: Performed By: #### CMP, PSASC, LIPID ### # [facility] [address] [place] [address] Francie Young Start: 10-26-2014 History of nasal sinus surgery Emely HOFFMAN Start: 10-26-1981 Torsion of testis (disorder) Emely Rodriguez Esophagogastroduodenoscopy Brendan GOLDSMITH Repair of right inguinal hernia Emely ENRIQUEMichael Sigmoidoscopy Emely GOLDSMITH Plan of Treatment Date Care Activity Detail Author Start: 01-28-2025 Adult BMI Screening Adult BMI Screen ing [facility] Start: 01-28-2025 Tobacco Screening Tobacco Screening [facility] Start: 12-31-2024 Adult BMI Screening Adult BMI Screen ing [facility] Start: 12-31-2024 Tobacco Screening Tobacco Screening [facility] Start: 06-26-2024 Influenza vaccination Influenza Vacc ine [facility] Start: 01-29-2024 End: 01-29-2024 Patient encounter procedure 01/29/2024 10:10 AM EDT Office Visit [facility] [address] [place] [address] Reji De La Rosa MD [address] [place] [address] [facility] Start: 01-01-2024 End: 01-01-2024 Patient encounter procedure 01/01/2024 10:10 AM EST Office Visit [facility] [address] [place] [address] Reji De La Rosa MD [address] [place] [address] [facility] Start: 06-26-2023 Influenza vaccination Influenza Vacc ine [facility] Start: 10-26-2022 DTaP,Tdap and Td Vac cines (2 - Td or Tdap) DTaP,Tdap and Td Vaccines (2 - Td or Tdap) [facility] Start: 10-26-2022 DTaP/Tdap/Td vaccine (2 - Td or Tdap) DTaP/Tdap/Td vaccine (2 - Td or Tdap) [employer] Phone: Start: 05-22-2022 Adult BMI Screening Adult BMI Screen ing [employer] Start: 06-26-2021 Influenza vaccination Flu vacc ine (Season Ended) [employer] Phone: Start: 04-05-2021 End: 04-05-2021 Admission to same day surgery center 04/05/2021 Surgery [place] [address] [place], [place] [id number] RIGHT HERNIA INGUINAL REPAIR [facility]IC [facility] Comment on above: RIGHT HERNIA INGUINA L REPAIR LAPAROSCOPIC ROBOTIC WITH MESH Start: 04-05-2021 Subsequent hospital visit by physician 04/05/2021 Hospital Encounter [place] [address] [place] [address] Pre-op testing (Primary Dx) [facility] Comment on above: Pre-op testing (Prim dong Dx) Start: 04-01-2021 End: 03-29-2022 COVID-19 COVID-19 Lab Routine Preop testing Expected: 04/01/2021, Expires: 03/29/2022 [employer] Phone: Comment on above: Expected: 04/01/2021 , Expires: 03/29/2022 Start: 04-01-2021 End: 04-01-2021 Patient encounter procedure 04/01/2021 Appointment Lab [facility] Covid Screening Start: 01-30-2021 Lipid panel Lipid screen [employer] Phone: Start: 2017 Administration of varicella zoster vaccine Zoster (Shingles) Vaccine (1 of 2) [employer] Start: 2017 Screening for malign ant neoplasm of colon Colon cancer screen colonoscopy [employer] Phone: Start: 2017 Shingles Vaccine (1 of 2) Barraza gles Vaccine (1 of 2) [employer] Phone: Start: 2007 Diabetes screen Diabetes screen [facility] [employer] Phone: Start: 2007 Lipid panel Lipid screen [facility] Work Phone: Start: 1986 DTaP/Tdap/Td vaccine (1 - Tdap) DTaP/Tdap/Td vaccine (1 - Tdap) [facility] Start: 1985 Adult BMI Follow Up Plan [facility] Start: 1982 HIV screening [facility] screen [facility] Work Phone: Start: 1979 COVID-19 Vaccine (1) COVID-19 Vaccin e (1) [employer] Phone: Start: 1979 [facility] [employer] [employer] Start: 1979 Tobacco Screening Tobacco Screening [facility] Start: 1967 Hepatitis C screening Hepatitis C sc reen [employer] Phone: End: 03-27-2022 EKG 12 lead EKG 12 lead ECG Routine Pre-op testing 1 Occurrences starting 03/27/2021 until 03/27/2022 [employer] Phone: Comment on above: 1 Occurrences starti ng 03/27/2021 until 03/27/2022 Oxygen therapy [[facility] Data Set] Initiate Oxygen Therapy Protocol Respiratory Care Routine Daily until discontinued starting 04/05/2021 [employer] Phone: Comment on above: Daily until disconti nued starting 04/05/2021 Phase I & II - meter ed glucose Phase I & II - metered glucose Point of Care Testing Routine As Needed until discontinued starting 04/05/2021 [employer] Phone: Comment on above: As Needed until disc ontinued starting 04/05/2021 End: 04-05-2021 , urine POCT , urine POCT Point of Care Testing Routine One Time for 1 Occurrences starting 04/05/2021 until 04/05/2021 [employer] Work Phone: Comment on above: One Time for 1 Occur rences starting 04/05/2021 until 04/05/2021 Immunizations Immunization Date Immunization Notes Care Provider Samantha parrish 10-26-2012 tetanus toxoid, redu sandoval diphtheria toxoid, and acellular pertussis vaccine, adsorbed Darlene Bierley 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 2023 Private Health Insurance 2022 Unknown [id number] 2021 Private Health Insurance [id number] 2021 Worker's Compensation WORKER'S C OMPENSATION WORKER'S [id number] 2021-Present [address] [id number] [id number] 1967 Unknown [id number] 2.16.840.1.260938.3.579. 2.593 1967 Unknown [id number] 2.16.840.1.545783.3.579. 2.593 1967 Unknown [id number] 2.16.840.1.457693.3.579. 2.593 1967 Unknown [id number] 2.16.840.1.917568.3.579. 2.593 1967 Unknown [id number] 2.16.840.1.213618.3.579. 2.593 1967 Unknown [id number] 2.16.840.1.816786.3.579. 2.593 1967 Unknown [id number] 2.16.840.1.310725.3.579. 2.593 1967 Unknown [id number] 2.16.840.1.046318.3.579. 2.175 1967 Unknown [id number] 2.16.840.1.907312.3.579. 2.175 1967 Unknown [id number] 2.16.840.1.125361.3.579. 2.175 1967 Unknown [id number] 2.16.840.1.563557.3.579. 2.175 1967 Unknown [id number] 2.16.840.1.622969.3.579. 2.727 1967 Unknown [id number] 2.16.840.1.566441.3.579. 2.1259 1967 Unknown [id number] 2.16.840.1.234669.3.579. 2.1259 1967 Unknown [id number] 2.16.840.1.220110.3.579. 2.1259 1967 Unknown [id number] 2.16.840.1.047095.3.579. 2.1286 1967 Unknown [id number] 2.16.840.1.387110.3.579. 2.1286 1967 Unknown [id number] 2.16.840.1.536578.3.579. 2.1286 1967 Unknown [id number] 2.16.840.1.751538.3.579. 2.1286 1967 Unknown [id number] 2.16.840.1.591554.3.579. 2.1286 1959 Unknown [id number] Social History Date Type Detail Facility Start: 03-26-2021 End: 08-12-2023 Tobacco smoking status NHIS Former smoker [facility] Start: 03-26-2021 End: 01-29-2024 Alcohol intake Current drinker of alcohol (finding) [employer] Work Phone: Start: 11-22-2015 Alcohol Comment occasionally [employer] Work Phone: Start: 1965 Sex Assigned At Not on file [email or web address] Work Phone: Exposure to SARS-CoV -2 (event) Not sure [employer] End: 03-27-2016 History of tobacco use Current smoker [employer] Start: 03-27-2021 End: 01-01-2024 Tobacco use and exposure Never used [employer] Start: 03-27-2021 Alcohol Comment not often [employer] Work Phone: Start: 1965 Sex Assigned At Male [email or web address] Work Phone: Tobacco smoking status Smokeless tobacco user within last 30 days [facility] [place] Start: 11-15-2020 End: 05-22-2021 Sex Assigned At Male [facility] Start: 04-29-2019 End: 01-01-2024 Tobacco smoking status NHIS Never smoked tobacco [facility] Start: 11-15-2020 End: 05-22-2021 History of Social function [facility] Start: 10-02-2020 Gender identity Identifies as male gender (finding) [facility] Start: 10-02-2020 Sexual orientation Heterosexual (fin ding) [facility] Medical Equipment Procedure Code Equipment Code Equipment Origin al Text Equipment Identifier Dates Mesh Surg W3.5xl 6in Poly Self Fixating Rect W/ Resrb [employer] [id number] Start: 04-05-2021 Functional Status Date Assessment Result Facility 08-12-2023 Functional Status N/A [facility] Clinical Notes 01-24-2021 to 01-29-2024 Reji De La Rosa MD - 01/29/2024 10:10 AM Eric De La Rosa MD - 01/01/2024 10:10 AM Claudio De La Rosa MD - 12/03/2023 10:10 AM Altaf Collier - 04/05/2021 3:54 PM EDTInstructions Note Date & Type Note Facility 01-29-2024 History of Presen t illness Narrative [facility] Reji De La Rosa MD Orth[facility] Last encounter with me:01/01/2024 Reji De La Rosa MD Last Encounter with Speciality: 01/01/2024 Reji De La Rosa MD Date of visit: 01/29/2024 Chief Complaint: Chief Complaint Patient presents with Left Ankle - Pain [facility] left ankle sprain sustained on 11/20/2023, ASO has been off since Thursday. States he is doing well, states he has some soreness in different place without the brace as he did with the brace. PT finished. HPI Lei Chang II is a 58 y.o. who returns in follow-up for his left ankle. He sustained an injury at work on 11/16/2023 resulting in an ankle sprain. This is a worker's comp claim. He discontinued his ASO brace earlier this week and completed his physical therapy. He is currently on work restrictions limiting his walking to 4 hours daily. Overall he states he is doing well. He will occasionally have discomfort in the lateral aspect of the ankle but this has improved significantly. Examination Left foot and ankle shows skin is clean dry and intact. There is no swelling or deformity. He has no tenderness to palpation on exam of the ankle. He has full range of motion 5/5 strength against resisted dorsiflexion, plantar flexion, inversion and eversion. Negative anterior drawer testing. Xrays ordered & done in office:: X-ray ankle left minimum 3 views Date xrays obtained :12/03/2023 Standing AP, lateral mortise view of the left ankle was obtained today. This shows no acute fractures or dislocations. Procedures in clinic today: None Assessment Left ankle sprain on 11/16/2023. Worker's comp claim Plan Norm has seen significant improvement in his ankle pain. He is no longer wearing the ASO and has completed his physical therapy. We are going to go ahead and lift his work restrictions. I will see him back on an as-needed basis. I,Reji De La Rosa, personally performed the face to face evaluation on this patient. I discussed with the patient and confirmed the accuracy and completeness of the aforementioned history prepared by the advance practice provider, and I personally performed the clinical examination of the patient. The critical element of all procedures were performed by me. I discussed the treatment plan with the patient. My examination, medical decision making and treatment plan are reflected above and are as follows. He is noted significant improvement in regards to his ankle. Made good progress with physical therapy. He has really not having much in the way of issues at all. He is kind of work himself out of his ASO brace. His examination shows patient have 5/5 strength in the ankle. There is no significant tenderness to palpation in this region. He is got good alignment of the ankle up. He is able to do single leg heel rise. At this point he will progressively increase activities as tolerated and I will plan on seeing him back if he is any further problems. documented in this encounter [facility] 01-01-2024 History of Presen t illness Narrative [facility] Reji De La Rosa MD Orthopaedic Surgery [facility] Last encounter with me:12/03/2023 Reji De La Rosa MD Last Encounter with Speciality: 12/03/2023 Reji De La Rosa MD Date of visit: 01/01/2024 Chief Complaint: Chief Complaint Patient presents with Left Ankle - Follow-up CK LT ANKLE [facility]WC Patient is currently in PT 2 x a week doing well. KATHE Chang II is a 58 y.o. who returns in follow-up for he reports he is noted to have improvement since his last visit here.. He is continued to have some swelling at than it an achiness at the end of the day. He is currently doing a couple hours of walking and doing some cases around the ankle and then also doing some sitting work. He denies any locking catching or giving way of the ankle. Examination Examination of the ankle reveals patient have some tenderness along the anterior portion of the calcaneus. Some tenderness along the anterolateral ankle joint. No Lisfranc tenderness. No proximal leg tenderness. His eversion strength is gradually improving. External notes reviewed: Review of test/study reports: My personal interpretation of tests: Xrays ordered & done in office:: X-ray ankle left minimum 3 views Date xrays obtained :12/03/2023 Standing AP, lateral mortise view of the left ankle was obtained today. This shows no acute fractures or dislocations. Procedures in clinic today: Assessment left ankle sprain sustained on 11/20/2023 Plan At this point I am going to him continue in his ASO brace. 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 I will plan on seeing him back here in approximately 4 weeks. We will have him continue with physical therapy as well. . documented in this encounter [facility] 12-03-2023 History of Presen t illness Narrative 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 Lateral ankle pain. Will need to update work. Currently wearing ASO brace which helps it feel more stable. [facility] Lei Chang II is a 58 y.o. male with new complaint of right ankle pain. 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 Noticed pain immediately. Continue to work for another 20-30 minutes and had to stop working because of pain. He was seen at a signaler office Dr. Malini Quinones at [facility] x-rays were taken demonstrating no fractures and was diagnosed with ankle sprain. Treated this conservatively by giving him a ASO brace for support.. He continues to wear the ASO brace majority of time. Complains of residual pain along the l lateral side of the ankle and lateral border of the foot. Examination Exam: Exam of the legs show normal posterior tibial and dorsalis pedis pulses. Normal sensation to light touch in foot and ankle. Left foot positive swelling appreciated on the lateral side of the ankle. Tenderness along the ATFL CFL. Mild tenderness along the lateral border of the foot. Decreased range of motion with 4/5 strength against resistance. Negative anterior drawer no subtalar limitation Achilles tendon posterior tibial tendon and peroneal tendons are intact with no tenderness. 2+ pedal pulses. Sensory intact distally light touch. External notes reviewed: Review of test/study reports: My personal interpretation of tests: Xrays ordered & done in office: X-ray ankle left minimum 3 views Date xrays obtained :12/03/2023 Standing AP, lateral mortise view of the left ankle was obtained today. This shows no acute fractures or dislocations. Procedures in clinic today: Assessment Ankle sprain right date of injury 11/16/2023 Plan Discussed clinical examination and x-ray findings with patient today. Ankle X-ray demonstrates no fracture seen. Examination of his right ankle demonstrates tenderness along the ATFL and CFL area consistent with ankle sprain. Discussed treatment options. He will remain in ASO brace majority of time with activities for support. Physical therapy prescription was provided with instructions of range of motion and strengthening. Also discussed work restrictions that include 1-2 hours of work daily for the next 4 weeks. Follow-up in 4 weeks re-evaluate. Answered all questions I, Reji De La Rosa, personally performed the face to face evaluation on this patient. I discussed with the patient and confirmed the accuracy and completeness of the aforementioned history, and I personally performed the clinical examination of the patient. I have established and discusses the course of treatment with the patient and Physician Teacher Music. The critical element of all procedures were performed by me. My examination, medical decision making and treatment plan are reflected above and are as follows: Most his pain appears to be localized on the lateral malleolar region. He is got tenderness along the ATFL and CFL ligaments. No Lisfranc tenderness. No proximal leg tenderness. He does have some weakness with eversion. I think at this point would benefit from physical therapy. I am going to give him some restricted work duties. I will plan on seeing him back in 4 weeks. documented in this encounter [facility] 08-12-2023 Note Chief Complaint consultation for anemia HPI Staff 57 year old male presents on consultation from Dr. Bravo for anemia. H/H 13.5/40.7. Denies abdominal or rectal pain. No rectal bleeding or change in bowel habits. Denies nausea or vomiting. No unexplained weight loss. Denies dizziness, lightheadedness, fatigue of SOB. Verbalized he had EGD and sigmoidoscopy 20 years ago. Sigmoidoscopy was unremarkable. EGD with duodenal inflammation and gastric ulcers treated with medication. No known family history of colon cancer. History of Present Illness 57 yo male referred for mild iron deficiency anemia; patient reports long h/o anemia, had been on iron therapy in the past; no change in bms or blood in stools, no melena, no abd complaints, no fatigue or shortness of breath; no asa or NSAID use, no SBE prophylaxis; no GERD or dysphagia; patient with h/o gasric ulcers in past, treated with PPI; had remote EGD and sigmoidoscopy; no polyps; only abd operation RI[facility], no previous colonoscopy; no fmhx of GI malignancy or IBD; vapes nicotine containing products. Review of Systems PHQ Score Initial Depression Screen Score: 0 ROS - Provider Constitutional: no fever, no sweats, no weight loss. Eyes: no glasses, no blurred vision, no visual loss. ENMT: no dentures, no hoarseness, no swallowing difficulties, no hearing loss, no ear infection(s), no nose bleeds. Cardiovascular: normal blood pressure, no chest pain, regular heartbeat, no heart murmur. Respiratory: no shortness of breath, no cough, no asthma, no wheezing. Gastrointestinal: no nausea, no vomiting, no diarrhea, no constipation, no blood in stool, no change in bowel habits, no abdominal pain, no hepatitis. Genitourinary: no kidney stones, no urine infection, no dysuria. Musculoskeletal: no pain, no weakness. Skin: no changing moles, no rash, no skin lumps. Neurologic: no seizures, no epilepsy, no headache. Psychiatric: no emotional or psychiatric problem. Heme/Lymph: no bleeding problems, no anemia, no blood clots, no transfusions. Allergy/Immunologic: no swollen lymph nodes/glands, no IV drug abuse. Other: Additional ROS info: Except as noted in the above Review of Systems and in the History of Present Illness, all other systems have been reviewed and are negative or noncontributory. Physical Exam Vitals & Measurements HR: 70(Peripheral) RR: 16 BP: 112/78 HT: 71 in HT: 180.34 cm WT: 110 kg WT: 242 lb BMI: 33.82 HEENT: normal conjunctiva, sclera clear, no scleral icterus, EOM intact, PERRLA, oral mucosa moist without lesions. Neck: trachea midline, no mass, symmetric, no thyromegaly or nodules, no adenopathy Respiratory: lungs CTA, respirations non labored. Cardiovascular: regular rate and rhythm, no murmur, no pedal edema or varicosities. Gastrointestinal: soft, non distended, no tenderness, no masses, no palpable hernias, diastasis recti no, no hepatosplenomegaly; normal bs Lymphatic: no cervical adenopathy, no supraclavicular adenopathy. Musculoskeletal: normal gait, digits and nails without infection, nodes, cyanosis, clubbing. Skin: no rashes, no lesions, no ulcers, no subcutaneous nodules, induration. Psychiatric/Neuro: oriented to time, place, person, judgement normal, affect appropriate for age, insight intact, no focal deficits. Tests: labs reviewed, review of old records completed , Discussed surgical options, risks, and possible complications with patient. Assessment/Plan 1. Iron deficiency anemia (D50.9: Iron deficiency anemia, unspecified) plan EGD and colonoscopy under anesthesia for further evaluation, informed consent obtained. 2. H/O gastric ulcer (Z87.11: Personal history of peptic ulcer disease) see # 1 Follow-up No qualifying data available Problem List/Past Medical History Ongoing Anemia BMI 33.0-33.9,adult Closed displaced fracture of lateral malleolus of right fibula with delayed healing H/O gastric ulcer Iron deficiency anemia Obesity Positive fecal occult blood test Right inguinal hernia Sleep apnea Vaping nicotine dependence, non-tobacco product Historical Smoker Procedure/Surgical History History of nasal sinus surgery (10/26/2014), Testicular torsion (10/26/1981), Esophagogastroduodenoscopy, Repair of right inguinal hernia, Sigmoidoscopy. Medications No active medications Allergies No Known Allergies No Known Medication Allergies Social History Alcohol - Denies Alcohol Use, 01/15/2021 Substance Abuse Current, Marijuana, Daily, 08/12/2023 Tobacco Former smoker, quit more than 30 days ago Tobacco Use:. Smokeless tobacco user within last 30 days Smokeless Tobacco Use:. Vaping, 0.5 per day. Started age 16.0 Years. Stopped age 51 Years. Yes, 08/12/2023 Family History Bipolar: Mother. Hypertension: Father. Primary malignant neoplasm of lung: Father. TIA: Sister. [facility] Comment on above: Result Comment: Elec tronically Signed By: AGUS SOLO, Eemly Sofia\Date and Time Signed: 08/12/23 17:26 EDT 04-05-2021 History of Presen t illness Narrative CLINICAL PHARMACY NOTE: MEDS TO BEDS Total # of Prescriptions Filled: 2 The following medications were delivered to the patient: Stool Softener [place] 5-325 Additional Documentation: Preoperative Instructions: Stop eating solid foods at midnight the night prior to your surgery. Stop drinking clear liquids at midnight the night prior to your surgery. 04-05-21 Arrive at the surgery center (3rd entrance) on 4-25-85 by ___1130 . Please stop any blood thinning medications as directed by your surgeon or prescribing physician. Failure to stop certain medications may interfere with your scheduled surgery. These may include: Aspirin, Coumadin, Plavix, NSAIDS (Motrin, Aleve, Advil, Mobic, Celebrex), Eliquis, Pradaxa, Xarelto, Fish oil, and herbal supplements. You may continue the rest of your medications through the night before surgery unless instructed otherwise. Day of surgery please take only the following medication(s) with a small sip of water:None Please shower with antibacterial soap and water the night before and the morning of surgery. Reminders: -If you are going home the day of your procedure, you will need a family member or friend to stay during the procedure and drive you home after your procedure. Your otr hazmat company driver must be 18 years of age or older and able to sign off on your discharge instructions. -If you are going home the same day of your surgery, someone must remain with you for the first 24 hours after your surgery if you receive sedation or anesthesia. -Please do not wear any jewelery, contacts, lotions or body piercing the day of surgery documented in this encounter [employer]: 01-24-2021 Hospital Discharg Vidya Contreras, KENY - 04/05/2021 Patient Discharge Instructions Discharge Date: 04/05/2021 HYGEINE: Ok to shower 04/06/21, no soaking in a tub/pool until seen at your follow up appointment. Clean incision daily with gentle soap and water, do not use alcohol/peroxide or any harsh cleansers. DRIVING: No driving while taking narcotic medications or while in pain ACTIVITY: No lifting greater than 20lbs for 6 weeks or any strenuous activity. DIET: Resume your normal diet as advised by your PCP. MEDICATIONS: Take all medications as prescribed. Take Colace until you have your first bowel movement, continue to take if you are using [place] for pain control SPECIAL INSTRUCTIONS: Follow up with Dr. Nunes in 7-10 days, call the clinic for appointment. Call sooner if fever above 100.4 degrees Farenheit, increase in swelling or redness, thick purulent discharge or pain not controlled with medications. Activity You have had anesthesia today Do not drive, operate heavy equipment, consume alcoholic beverages, or make any important decisions for 24 hours If you are taking pain medication: Do not drive or consume alcohol. Take your time changing positions today. You may feel light headed or dizzy if you move too quickly. Continue your home medications as ordered by your physician. Diet You can eat your normal diet when you feel well. You should start off with bland foods like chicken soup, toast, or yogurt. Then advance as tolerated. Drink plenty of fluids (unless your doctor tells you not to). Your urine should be very lightly colored without a strong odor. documented in this encounter [employer]: Evaluation + Plan note No data available for this section General Surgery Simple Admit Evaluation note Diagnosis Right inguinal hernia Inguinal hernia without mention of obstruction or gangrene, unilateral or unspecified, (not specified as recurrent) documented in this encounter [employer]: [email or web address] note* Diagnosis Right inguinal hernia Inguinal hernia without mention of obstruction or gangrene, unilateral or unspecified, (not specified as recurrent) documented in this encounter [employer]: [email or web address] note* Diagnosis Pre-op testing- Primary Preoperative examination, unspecified Preop testing- Primary Preoperative examination, unspecified documented in this encounter [employer]: [email or web address] note* Diagnosis Pre-op testing- Primary Preoperative examination, unspecified Right inguinal hernia Inguinal hernia without mention of obstruction or gangrene, unilateral or unspecified, (not specified as recurrent) documented in this encounter [employer] Phone: [email or web address] note* Diagnosis Sprain of left ankle, unspecified ligament, initial encounter- Primary Left ankle pain, unspecified chronicity Left ankle pain, unspecified chronicity [facility] Sprain of left ankle, unspecified ligament, initial encounter- Primary [facility] Sprain of left ankle, unspecified ligament, initial encounter- Primary [facility] No data available for this section General Surgery Simple Admit InstructionsNot on filedocumented in this encounter [facility] filedocumented [facility] No data available for this section General Surgery Simple Admit Summary Purpose Family History No Family History Records FoundNo Family History Records FoundNo Family History Records Found No data available for this section No Family History Records FoundNo Family History Records FoundNo Family History Records FoundNo Family History Records Found Advance Directives Documents on File Type Date Recorded Patient Interventional Pain Physician Expl anation ACP-Advance Directive ACP-Power of Imaging Engineer Documents on File Type Date Recorded Patient Interventional Pain Physician Expl anation ACP-Advance Directive ACP-Power of Imaging Engineer Reason for Referral Status Reason Specialty Diagnoses / Procedures Referred By Contact Referred To Contact Pending Review Cardiology Diagnoses Pre-op testing Procedures EKG 12 lead Leandra Marcus MD [address] [place] [address] Specialty Diagnoses / Procedures Referred By Contac t Referred To Contact Rehabilitation Diagnoses Sprain of left ankle, unspecified ligament, initial encounter Reji De La Rosa MD [address] [facility] [place] [address] [facility] [address] [facility] [address] [place] [address] Referral ID Status Reason Start Date Expiration Date Visits Requested Visits Authorized [id number] Authorized Specialty Services Required 12/03/2023 12/02/2024 1 1 Additional Source Comments (unrecognized sect ion and content) No Status Records FoundNo Status Records FoundNo Status Records FoundNo Status Records FoundNo Status Records FoundNo Status Records FoundNo Status Records Found INFORMATION SOURCE (unrecogn ized section and content) DATE CREATED AUTHOR [facility]15/2021 [facility] DATE CREATED AUTHOR AUTHOR'S ORGANIZ ATION 03/29/2021 [facility] DATE CREATED AUTHOR AUTHOR'S ORGANIZ ATION 04/08/2021 [facility] DATE CREATED AUTHOR AUTHOR'S ORGANIZ ATION 10/07/2023 [facility] DATE CREATED AUTHOR AUTHOR'S ORGANIZ ATION 11/17/2023 [facility] DATE CREATED AUTHOR AUTHOR'S ORGANIZ ATION 01/02/2024 [facility] DATE CREATED AUTHOR AUTHOR'S ORGANIZ ATION 01/25/[address] [facility] Reason for Visit (unrecogniz ed section and content) Status Reason Specialty Diagnoses / Procedures Referre d By Contact Referred To Contact Closed Radiology Diagnoses Right inguinal hernia Procedures US PELVIS LIMITED [place] [address] [place] [address] Status Reason Specialty Diagnoses / Procedures Referre d By Contact Referred To Contact Diagnoses Inguinal hernia RIGHT INGUINAL HERNIA Procedures AL REPAIR RECURR INGUIN VANDANA,NETTIE RIGHT HERNIA INGUINAL REPAIR LAPAROSCOPIC [place] [address] [place] [address] [facility] Reason Comments Work Related Injury 11/20/23 Works for [employer]. 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 Lateral ankle pain. Will need to update work. Currently wearing ASO brace which helps it feel more stable. Reason Comments Follow-up [facility] Tami ent is currently in PT 2 x a week doing well. Reason Comments Pain C left ankle sprai n sustained on 11/20/2023, ASO has been off since Thursday. States he is doing well, states he has some soreness in different place without the brace as he did with the brace. PT finished. Ordered Prescriptions (unrec ognized section and content) Prescription Sig Dispensed Refills Start Date End Da te docusate sodium (COLACE) 100 MG capsule Take 1 capsule by mouth 2 times daily 30 capsule 0 04/05/2021 HYDROcodone-acetaminoph en (NORCO) 5-325 MG per tabletIndications:Right inguinal hernia Take 1 tablet by mouth every 6 hours as needed for Pain for up to 7 days. Intended supply: 7 days. Take lowest dose possible to manage pain 10 tablet 0 04/05/2021 04/12/2021 Scheduled Active and Recently Administ ered Medications (unrecognized section and content) Medication Order 04/03/2021 04/04/2021 04/05/2021 ceFAZolin (ANCEF) 2000 mg in dextrose 5 % 50 mL IVPB (COMPLETED) 2,000 mg, Intravenous, ONCE, 1 dose, On Thu04/05/21 at 1415 1531 (Given - Provid er: Elda Madrigal, TROLLEY OPERATOR - STAFFING BRANCH MANAGER) sodium chloride flush 0.9 % injection 10 mL 10 mL, Intravenous, EVERY 12 HOURS SCHEDULED (2 times per day), First dose on Thu04/05/21 at 2100, Pre-op (day of surgery) 2100 (Due) Continuous Medication Order 04/03/2021 04/04/2021 04/05/2021 lactated ringers infusion Intravenous, at 100 mL/hr, CONTINUOUS, Starting on Thu04/05/21 at 1300, Pre-op (day of surgery) 1300 (Due) PRN Medication Order 04/03/2021 04/04/2021 04/05/2021 0.9 % sodium chloride bolus 500 mL (4.31 mL/kg), Intravenous, at 250 mL/hr, Administer over 2 Hours, ONCE PRN, Nausea, Starting on Thu04/05/21 at 1337, For 1 dose, PACU only 0.9 % sodium chloride infusion 25 mL, Intravenous, at 100 mL/hr, PRN, If patient receiving piggyback infusions without ordered maintenance IV fluids or with frequent/long duration piggyback infusions, Starting on Thu04/05/21 at 1234, Administer at the same rate as the piggyback being infused., Pre-op (day of surgery) diphenhydrAMINE (BENADRYL) injection 12.5 mg 12.5 mg, Intravenous, ONCE PRN, Itching, Starting on Thu04/05/21 at 1337, For 1 dose, PACU only HYDROmorphone (DILAUDID) injection 0.25 mg 0.25 mg, Intravenous, EVERY 5 MIN PRN, Pain Moderate (4-6), Starting on Thu04/05/21 at 1337, For 8 doses, Phase I - Secondary therapy to be used after all initial moderate pain medication doses have been administered., PACU only HYDROmorphone (DILAUDID) injection 0.5 mg 0.5 mg, Intravenous, EVERY 5 MIN PRN, Pain Severe (7-10), Starting on Thu04/05/21 at 1337, For 4 doses, Phase I - Initial therapy for severe pain., PACU only HYDROmorphone (DILAUDID) injection 0.5 mg 0.5 mg, Intravenous, EVERY 5 MIN PRN, Pain Severe (7-10), Starting on Thu04/05/21 at 1337, For 4 doses, Phase I - Secondary therapy to be used after all initial severe pain medication doses have been administered., PACU only 1748 (Given - Provid er: Vidya Olson RN) labetalol (NORMODYNE;TRANDATE) injection syringe 10 mg 10 mg, Intravenous, EVERY 10 MIN PRN, High Blood Pressure, Starting on Thu04/05/21 at 1337, PRN for SBP >160 for 2 consecutive measurements, if HR is 60 or greater. If beta kayleen is contraindicated (HR less than 60, heart block, COPD or asthma) use hydralazine IV order., PACU only lidocaine PF 1 % injection 1 mL 1 mL, Intradermal, ONCE PRN, IV start, Starting on Thu04/05/21 at 1234, For 1 dose, Pre-op (day of surgery) meperidine (DEMEROL) injection 12.5 mg 12.5 mg, Intravenous, EVERY 5 MIN PRN, Shivering, , Starting on Thu04/05/21 at 1337, May give every 5 minutes to max of 25mg., PACU only morphine (PF) injection 2 mg 2 mg, Intravenous, EVERY 5 MIN PRN, Pain Moderate (4-6), Starting on Thu04/05/21 at 1337, For 10 doses, Phase I - Initial therapy for moderate pain., PACU only ondansetron (ZOFRAN) injection 4 mg (COMPLETED) 4 mg, Intravenous, ONCE PRN, Nausea, Starting on Thu04/05/21 at 1337, For 1 dose, PACU only 1747 (Given - Provid er: Vidya Olson RN) oxyCODONE-acetaminophen (PERCOCET) 5-325 MG per tablet 1 tablet(Linked Group 1) 1 tablet, Oral, PRN, Pain Moderate (4-6), Starting on Thu04/05/21 at 1337, For 1 dose, PHASE II, PACU only oxyCODONE-acetaminophen (PERCOCET) 5-325 MG per tablet 2 tablet(Linked Group 1) 2 tablet, Oral, PRN, Pain Severe (7-10), Starting on Thu04/05/21 at 1337, For 1 dose, PHASE II, PACU only promethazine (PHENERGAN) injection 12.5 mg 12.5 mg, Intravenous, EVERY 15 MIN PRN, Nausea, Starting on Thu04/05/21 at 1337, For 2 doses, Recommended route is IM. Caution if used IV:Check IV site for infiltrate prior to and during administration. Secondary antiemetic therapy. For IV administration, dilute to 10ml with normal saline. Must be administered over at least 10 minutes., PACU only sodium chloride flush 0.9 % injection 10 mL 10 mL, Intravenous, PRN, Line Care, After every IV line use, Starting on Thu04/05/21 at 1234, Pre-op (day of surgery) No Frequency Medication Order 04/03/2021 04/04/2021 04/05/2021 fentaNYL (SUBLIMAZE) 100 MCG/2ML injection (COMPLETED) Starting on Thu04/05/21 at 1330, For 1 dose, Daria Day: cabinet override 1354 (Given - Provid er: Marlene Leggett, KENY) midazolam (VERSED) 2 MG/2ML injection (COMPLETED) Starting on Thu04/05/21 at 1330, For 1 dose, Daria Day: cabinet override 1354 (Given - Provid er: Marlene Leggett RN) Linked Groups Order Group 1: oxyCODONE-acetaminophen (PERCOCET) 5-325 MG per tablet 1 tabletJump to med 1 tablet, Oral, PRN, Pain Moderate (4-6), Starting on Thu04/05/21 at 1337, For 1 dose
PHASE II
PACU only Or oxyCODONE-acetaminophen (PERCOCET) 5-325 MG per tablet 2 tabletJump to med 2 tablet, Oral, PRN, Pain Severe (7-10), Starting on Thu04/05/21 at 1337, For 1 dose
PHASE II
PACU only Patient Care team informatio n (unrecognized section and content) Manager Sourcing Relationship Specialty Start Date End Date Ramandeep Bravo MD [address] [place] [address] PCP - General Family Medicine 09/28/20 Manager Sourcing Relationship Specialty Start Date End Date Ramandeep Bravo MD [address] [place] [address] PCP - General Family Medicine 09/28/20 Manager Sourcing Relationship Specialty Start Date End Date Ramandeep Bravo MD [address] [place] [address] PCP - General Family Medicine 09/28/20 FOR RECORDS PERTAINING TO PATIENTS WHO ARE OR HAVE BEEN ENROLLED IN A CHEMICAL DEPENDENCY/SUBSTANCEABUSE PROGRAM, SOME INFORMATION MAY BE OMITTED. This clinical summary was aggregated from multiple sources. Caution should be exercised in using it in the provision of clinical care. This summary normalizes information from multiple sources, and as a consequence, information in this document may materially change the coding, format and clinical context of patient data. In addition, data may be omitted in some cases. CLINICAL DECISIONS SHOULD BE BASED ON THE PRIMARY CLINICAL RECORDS. [email or web address] provides no warranty or guarantee of the accuracy or completeness of information in this document.
[2025-04-13 08:32] LABS: Basophils Absolute Auto 0.1 10^3/uL (0.0-0.1); Basophils Percent Auto 1.6 % (0.2-2.0); Eosinophils Absolute Auto 0.3 10^3/uL (0.0-0.7); Eosinophils Percent Auto 6.4 % (0.9-7.0); Hematocrit 42.9 % (42.0-54.0); Hemoglobin 14.5 g/dL (14.0-18.0); Immature Granulocytes Abs Auto 0.01 10^3/uL (0.00-0.03); Immature Granulocytes Pct Auto 0.2 % (0.0-0.5); Lymphocytes Absolute Auto 1.2 10^3/uL (1.2-3.8); Mean Corpuscular HGB Conc 33.8 g/dL (29.9-35.2); Mean Corpuscular Hemoglobin 31.1 pg (25.9-34.0); Mean Corpuscular Volume 92.1 fL (80.0-94.0); Mean Platelet Volume 9.3 fL (9.5-13.5); Monocytes Absolute Auto 0.4 10^3/uL (0.3-0.8); Monocytes Percent Auto 9.7 % (1.7-12.0); Neutrophils Absolute Auto 2.4 10^3/uL (1.4-6.5); Neutrophils Percent Auto 54.1 % (43.0-75.0); Platelet Count 216 10^3/uL (150-450); Red Blood Count 4.66 10^6/uL (4.70-6.10); Red Cell Distribution Width 12.9 % (11.0-15.0); White Blood Count 4.4 10^3/uL (4.0-11.0)
[2025-04-13 09:11] LABS: Alanine Aminotransferase 30 U/L (16-63); Albumin Globulin Ratio 1.2; Albumin Level 3.6 g/dL (3.4-5.0); Alkaline Phosphatase 44 U/L (46-116); Anion Gap 11.2; Aspartate Amino Transferase 17 U/L (15-37); BUN Creatinine Ratio 22.9; Bilirubin Total 0.4 mg/dL (0.2-1.0); Calcium 8.6 mg/dL (8.5-10.1); Carbon Dioxide 29.5 mmol/L (21.0-32.0); Chloride 104 mmol/L (98-107); Cholesterol 161 mg/dL (<=200); Estimated GFR (African America >60 (>=60 mL/min/1.73m^2); Estimated GFR (Non-African Ame >60 (>=60 mL/min/1.73m^2); Free T3 2.34 pg/mL (2.18-3.98); Globulin 3.1 g/dL; Glucose 101 mg/dL (74-106); HDL Cholesterol 54 mg/dL (40-60); Potassium 4.7 mmol/L (3.5-5.1); Sodium 140 mmol/L (136-145); Thyroid Stimulating Hormone 2.484 uIU/mL (0.358-3.740); Total Protein 6.7 g/dL (6.4-8.2); Triglycerides 45 mg/dL (<=150)
[2025-04-13 09:33] LABS: Estimated Average Glucose 114 mg/dL; Glycohemoglobin A1C 5.6 % (4.5-6.2)
[2025-04-13 10:01] LABS: Prostate Specific Antigen Scrn 1.64 ng/mL (<=4.00)
[2025-04-14 05:07] LABS: Insulin 6.2 uIU/mL (2.6-24.9)
== END 2025-04-13 08:03 | disposition home or self-care (01) ==
PROVIDERS: PCP Family Medicine; Visit Provider Family Medicine
DX: Z00.00 Encounter for general adult medical examination without abnormal findings (principal); Z12.5 Encounter for screening for malignant neoplasm of prostate
CPT/HCPCS: 36415; 80053; 80061; 83036; 83525; 84436; 84443; 84481; 85025; G0103